=== PATIENT | female | born 2000 | race Caucasian/White ===

== ENCOUNTER 2020-04-24 08:41 | Outpatient (REF) | payer MEDICAID, SELFPAY ==
--- NOTE | 2020-04-24 08:45 | CT_ITS ---
EXAMINATION: CT HEAD WITHOUT CONTRAST CLINICAL INFORMATION: Migraine COMPARISON: None TECHNIQUE: Contiguous axial imaging was performed from the skull base to vertex without intravenous administration of contrast. This CT examination was performed using dose optimization techniques as appropriate, variously including the following: *Automated exposure control *Adjustment of mA and/or kV according to patient size (this includes techniques or standardized protocols for targeted exams where dose is matched to indication/reason for exam; i.e. extremities or head) *Use of iterative reconstruction technique DLP: 662 mGy-cm FINDINGS: There is no evidence of acute intracranial hemorrhage or territorial infarction. No abnormal mass effect or midline shift is seen. Padilla to white matter differentiation is well preserved. No extra-axial fluid collections are identified. The ventricles are normal in size. There is no abnormal attenuation within the brain parenchyma. The osseous structures and soft tissues are normal. The mastoid air cells and visualized portions of the paranasal sinuses are well aerated. CT/CT head/brain wo con IMPRESSION: No acute intracranial process seen.
== END 2020-04-24 08:42 | disposition home or self-care (01) ==
LOC: HO.CT 08:41
PROVIDERS: PCP Internal Medicine; Visit Provider Internal Medicine
DX: G43.009 Migraine without aura, not intractable, without status migrainosus (principal); R41.3 Other amnesia
CPT/HCPCS: 70450

== ENCOUNTER 2020-06-03 14:16 | Outpatient (REF) | payer MEDICAID, SELFPAY | END 2020-06-03 14:17 | disposition home or self-care (01) | LOC: HO.LAB 14:16 | PROVIDERS: Visit Provider Internal Medicine | DX: Z20.828 Contact with and (suspected) exposure to other viral communicable diseases (principal) | CPT/HCPCS: C9803; U0003 ==

== ENCOUNTER 2020-06-13 06:55 | Outpatient (REF) | payer MEDICAID, SELFPAY | END 2020-06-13 06:56 | disposition home or self-care (01) | LOC: HO.LAB 06:55 | PROVIDERS: PCP Internal Medicine; Visit Provider Internal Medicine | DX: Z20.828 Contact with and (suspected) exposure to other viral communicable diseases (principal) | CPT/HCPCS: C9803; U0003 ==

== ENCOUNTER 2020-06-28 07:08 | Outpatient (REF) | payer MEDICAID, SELFPAY | END 2020-06-28 07:09 | disposition home or self-care (01) | LOC: HO.LAB 07:08 | PROVIDERS: Visit Provider Internal Medicine | DX: Z20.822 Contact with and (suspected) exposure to COVID-19 (principal) | CPT/HCPCS: 36415; C9803; U0003 ==

== ENCOUNTER 2021-04-04 23:04 | Emergency (ER) | payer MEDICAID, SELFPAY ==
[2021-04-05 00:04] VITALS: BP 103/60; BP 112/68; PULSE 80; PULSE 92; RESP 16; TEMP 36.5; O2SAT 98; O2SAT 99; BMI 20.2
--- NOTE | 2021-04-05 00:49 | PC.NURSE ---
PT GIVEN ICE WATER AND CRACKERS, ABLE TO TOLERATE W/O NAUSEA OR VOMITING.
== END 2021-04-05 01:16 | disposition left against medical advice (07) ==
PROVIDERS: Emergency Provider Emergency Medicine
DX: F41.1 Generalized anxiety disorder (principal); R11.0 Nausea
CPT/HCPCS: 99282

== ENCOUNTER 2022-10-28 07:34 | Outpatient (REF) | payer MEDICAID, SELFPAY ==
[2022-10-28 08:51] LABS: D Dimer High Sensitivity 583 NG/ML
== END 2022-10-28 07:35 | disposition home or self-care (01) ==
LOC: HO.LAB 07:34
PROVIDERS: PCP Internal Medicine; Visit Provider Emergency Medicine
DX: R07.9 Chest pain, unspecified (principal)
CPT/HCPCS: 36415; 85379

== ENCOUNTER 2022-10-28 10:17 | Emergency (ER) | payer MEDICAID, SELFPAY ==
--- NOTE | ~2022-10-28 | CT_ITS ---
EXAMINATION: CT ANGIOGRAM OF THE CHEST WITH AND WITHOUT CONTRAST (CT PULMONARY ANGIOGRAM FOR PE) CLINICAL INFORMATION: Reason for Exam right chest pain, elevated DDIMER COMPARISON: None available. TECHNIQUE: Prior to contrast administration, noncontrast localization images were obtained. Subsequently, multidetector volumetric imaging was performed from the thoracic inlet to below the diaphragms following the administration of 80 mL Omnipaque 350 intravenous contrast. No contrast reaction reported Sagittal, coronal, and MIP oblique sagittal reformatted images were obtained on the CT workstation, uploaded to PACS, and reviewed. This CT examination was performed using dose optimization techniques as appropriate, variously including the following: *Automated exposure control *Adjustment of mA and/or kV according to patient size (this includes techniques or standardized protocols for targeted exams where dose is matched to indication/reason for exam; i.e. extremities or head) *Use of iterative reconstruction technique Total exam dose-length product 147 mGy-cm FINDINGS: QUALITY OF STUDY/CONTRAST BOLUS: Satisfactory. PULMONARY ARTERIES: No pulmonary emboli. THORACIC AORTA: No aneurysm. LUNG: No focal consolidation, nodules or masses. PLEURA: No pleural effusion or pneumothorax. MEDIASTINUM: Normal heart size. No pericardial effusion. No hilar or mediastinal lymphadenopathy. No evidence of septal bowing or right heart strain. CORONARY ARTERY CALCIFICATION: None visualized on this study. CHEST WALL/AXILLA: No axillary or internal mammary lymphadenopathy. OSSEOUS STRUCTURES: No acute or suspicious osseous abnormality. UPPER ABDOMEN: Visualized liver, spleen, pancreas and bilateral kidneys unremarkable. No reflux of contrast into the hepatic veins to suggest elevated right heart pressures. CT/CT angio chest PE protocol IMPRESSION: 1. No evidence of PE. 2. No evidence of aortic dissection or aneurysm. 3. The lungs are clear. VTE: negative. .
[2022-10-28 11:13] VITALS: BP 107/71; PULSE 77; RESP 18; TEMP 36.8; O2SAT 100; BMI 22.8
--- NOTE | 2022-10-28 11:15 | ED_ITS ---
HPI - Recheck/Abnormal Lab/Rx General Chief Complaint: Recheck/Abnormal Lab/Rx Stated Complaint: Elevated D Dimer Time Seen by Provider: 10/28/22 13:37 Source: patient Mode of arrival: ambulatory Limitations: no limitations History of Present Illness HPI narrative: 22 yo otherwise healthy female presents to the ER for evaluation of an elevated DDIMER done on outpatient labs this morning. She reports for the last 4 days she has had pleuritic type right sided rib and chest pain. She denies SOB or chest pain at rest. No coughing or URI symptoms. She denies any long trips, leg swelling or personal or family history of DVT/PE. She is not on OCP. She states the pain is only when she takes a deep breath. She is very active and works out multiple times per week. MD complaint: abnormal lab Initial visit (ago): hour(s) Returns today for: called because of abnormal lab/test Description of abnormal result: ddimer 500 Symptoms since prior visit: no new symptoms Associated symptoms: chest pain Related Data Allergies Allergy/AdvReac Type Severity Reaction Status Date / Time sulfamethoxazole Allergy Unknown RASH Unverified 03/07/20 17:12 [From BACTRIM] trimethoprim [From BACTRIM] Allergy Unknown RASH Unverified 03/07/20 17:12 Review of Systems Review of Systems: Yes all other systems are reviewed and are negative [facility] Past Medical History Medical History (Updated 10/28/22 @ 15:55 by MARKO Weathers) No known health problems Social History Social History Advance Directives: No Advance Directives Information Provided: No Physical Exam Vital Signs: Vital Signs: Last Vital Signs Temp 98.2 F 10/28/22 11:13 Pulse 77 10/28/22 11:13 Resp 18 10/28/22 11:13 BP 107/71 10/28/22 11:13 Pulse Ox 100 10/28/22 11:13 O2 Del Method Room Air 10/28/22 11:13 BMI result Body Mass Index 22.8 Appearance: Alert. Oriented X3. No acute distress. Head: normocephalic, atraumatic. Eyes: Pupils equal, round and reactive to light. ENT: Pharynx normal. No tonsillar swelling or exudate. Neck: Normal inspection. Neck supple. CVS: Normal heart rate and rhythm. Pulses normal. Respiratory: No respiratory distress. Breath sounds normal. Nontender chest wall Abdomen: Soft and nontender. +BS x4 Skin: Skin warm and dry. Normal skin color. Normal skin turgor. No rashes. Extremities: No lower extremity edema. No joint swelling. Neuro/psych: Oriented X 3. No motor deficit. No sensory deficit. CN II-XII intact. Normal speech and cognition. Medications Administered Discontinued Medications Generic Name Dose Route Start Last Admin Trade Name Freq PRN Reason Stop Dose Admin Iohexol 100 ml 10/28/22 13:42 10/28/22 13:46 Iohexol 350 Mg/Ml 100 Ml Infus..Btl IV 10/28/22 13:43 65 ml ONCE ONE Administration Medical Decision Making Medical Decision Making [facility] Narrative: 22 yo female presents to the ER for evaluation of 4 days of right sided rib pain w/ deep breaths. outpatient ddimer 583. no PE risk factors. no tachycardia or hypoxia. no leg swelling. CTA done and negative pain most likely muscular pain stable for d/c with nsaid and outpatient follow up Differential Diagnosis Differential Diagnoses: The differential diagnosis associated with the presentation includes PE, ACS unlikely costochronditis, pleurisy, PNA, broken rib, shingles, pulled muscle Lab Data [facility] Lab Attestation statement: I reviewed the patient's lab results. 10/28/22 11:52 10/28/22 11:52 Labs: Lab Results 10/28/22 10/28/22 Range/Units 11:52 11:52 WBC 9.5 (4.8-10.8) X10*3/uL RBC 4.41 (4.20-5.50) X10*6/uL Hgb 12.7 (12.0-16.0) g/dl Hct 38.7 (37.0-47.0) % MCV 87.8 (80.0-98.0) fL MCH 28.8 (27.0-33.0) pg MCHC 32.8 (31.0-35.0) g/dl RDW 13.1 (11.0-16.0) % Plt Count 297 (160-400) X10*3/uL MPV 9.0 L (9.4-12.3) fL Immature Gran % (Auto) 0.2 (0.0-0.4) % Neut % (Auto) 77.5 H (45-73) % Lymph % (Auto) 17.7 L (20-40) % [place] % (Auto) 3.9 (2-11) % Eos % (Auto) 0.4 (0-4) % Baso % (Auto) 0.3 (0-2) % Lymph # (Auto) 1.7 (1.2-4.9) X10*3/uL [place] # (Auto) 0.4 (0.1-1.2) X10*3/uL Eos # (Auto) 0.0 (0.0-0.4) X10*3/uL Baso # (Auto) 0.0 (0.0-0.2) X10*3/uL Abs Immat Gran (auto) 0.02 (0.00-0.03) X10*3/uL Absolute Neuts (auto) 7.3 (2.0-8.3) x10*3/uL Absolute Nucleated RBC 0.000 (0.0-0.012) X10*3/uL Nucleated RBC % (auto) 0.0 (0.0-0.2) /100WBC Sodium 140 (135-145) mmol/L Potassium 4.3 (3.3-5.1) mmol/L Chloride 106 (96-108) mmol/L Carbon Dioxide 28 (22-29) mmol/L Anion Gap 10 L (12-20) BUN 14 (9-16) mg/dL Creatinine 0.77 (0.5-1.4) mg/dL Estim Creat Clear Calc 82.3 Estimated GFR > 60 Random Glucose 80 (60-115) mg/dL Calcium 9.6 (8.4-10.2) mg/dL Magnesium 2.0 (1.6-2.6) mg/dL Total Bilirubin 0.3 (0.0-1.0) mg/dL Direct Bilirubin 0.1 (0.0-0.5) mg/dL AST 20 (5-31) U/L ALT 11 (0-31) U/L Alkaline Phosphatase 96 (39-117) U/L Total Protein 7.4 (6.5-8.0) g/dL Albumin 4.3 (3.5-5.0) g/dL Independent Interpretation I performed an independent interpretation of an: CT Scan Interpretation: clear lungs, no PE seen, agree w/ radiology read Radiology Impression Discussion of test interpretation with radiology: I have reviewed the radiologist's reading. Radiologist Impression: CT/CT angio chest PE protocol IMPRESSION: 1.? No evidence of PE. 2.? No evidence of aortic dissection or aneurysm. 3.? The lungs are clear. External Record Review External record reviewed: Outpatient record, Prior outpatient labs and Prior outpatient radiology Tests considered The following testing was considered but not selected: EKG Prescription Management I considered prescription management with: Pain Medication Critical Care Time Critical Care Time Critical Care Time: No Discharge Plan Discharge Clinical Impression: Chest pain, pleuritic Patient Disposition: Home, Self-Care Instructions: Costochondritis (ED) Additional Instructions: Your lab workup and CT scan today were normal. Your pain is most likely muscular pain Take the prescribed anti-inflammatory medication as prescribed If you develop new or worsening symptoms call 911 or come back to the ER for further evaluation. Referrals: Rosalind Mitchell MD [Primary Care Provider] - Stand Alone Forms: Work/School Release Interventions: ED Discharge Assessment Last Done: 10/28/22 16:15 Discharge Date/Time: 10/28/22 16:15
[2022-10-28 11:55] LABS: MANUAL DIFF FLAG NO
[2022-10-28 12:02] LABS: Basophils Percent Auto 0.3 % (0-2); Eosinophils Percent Auto 0.4 % (0-4); Hematocrit 38.7 % (37.0-47.0); Hemoglobin 12.7 g/dl (12.0-16.0); Imm Gran Abs Auto 0.02 X10*3/uL (0.00-0.03); Imm Gran Pct Auto 0.2 % (0.0-0.4); Lymphocytes Absolute Auto 1.7 X10*3/uL (1.2-4.9); Lymphocytes Percent Auto 17.7 % (20-40); Mean Corpuscular HGB Conc 32.8 g/dl (31.0-35.0); Mean Corpuscular Hemoglobin 28.8 pg (27.0-33.0); Mean Corpuscular Volume 87.8 fL (80.0-98.0); Monocytes Absolute Auto 0.4 X10*3/uL (0.1-1.2); Monocytes Percent Auto 3.9 % (2-11); Neutrophils Absolute Auto 7.3 x10*3/uL (2.0-8.3); Neutrophils Percent Auto 77.5 % (45-73); Platelet Count 297 X10*3/uL (160-400); Red Blood Count 4.41 X10*6/uL (4.20-5.50); Red Cell Distribution Width 13.1 % (11.0-16.0); White Blood Count 9.5 X10*3/uL (4.8-10.8)
[2022-10-28 12:22] LABS: Alanine Aminotransferase 11 U/L (0-31); Albumin Level 4.3 g/dL (3.5-5.0); Alkaline Phosphatase 96 U/L (39-117); Anion Gap 10 (12-20); Aspartate Amino Transferase 20 U/L (5-31); Bilirubin Direct 0.1 mg/dL (0.0-0.5); Bilirubin Total 0.3 mg/dL (0.0-1.0); Blood Urea Nitrogen 14 mg/dL (9-16); Calcium 9.6 mg/dL (8.4-10.2); Carbon Dioxide 28 mmol/L (22-29); Chloride 106 mmol/L (96-108); Creatinine Clr Calc Pharmacy 82.3; Estimated Glomerular Filt Rate > 60; Glucose Random 80 mg/dL (60-115); Potassium 4.3 mmol/L (3.3-5.1); Sodium 140 mmol/L (135-145); Total Protein 7.4 g/dL (6.5-8.0)
[2022-10-28] MEDS: iohexoL 350 MG/ML 100 ML INFUS..BTL IV (13:46)
== END 2022-10-28 16:15 | disposition home or self-care (01) ==
PROVIDERS: Physician Assistant; Emergency Provider Emergency Medicine Emergency Medical Services; PCP Internal Medicine
DX: R07.89 Other chest pain (principal)
CPT/HCPCS: 36415; 71275; 80048; 80076; 83735; 85025; 99282; 99284; Q9967

== ENCOUNTER 2022-12-14 14:18 | Outpatient (REF) | payer MEDICAID, SELFPAY | END 2022-12-14 14:19 | disposition home or self-care (01) | LOC: HO.XRAY 14:18 | PROVIDERS: Visit Provider Internal Medicine | DX: S63.657A Sprain of metacarpophalangeal joint of left little finger, initial encounter (principal); X58.XXXA Exposure to other specified factors, initial encounter; Y93.9 Activity, unspecified; Y92.9 Unspecified place or not applicable; Y99.9 Unspecified external cause status | CPT/HCPCS: 73110; 73130 ==

== ENCOUNTER 2023-01-02 09:43 | Emergency (ER) | payer MEDICAID, SELFPAY ==
--- NOTE | ~2023-01-02 | XR_ITS ---
EXAMINATION: XR HAND, LEFT CLINICAL INFORMATION: Left pinky pain status post injury. COMPARISON: Left hand radiographs dated 12/14/2022. TECHNIQUE: PA, lateral, and oblique views of the left hand. FINDINGS: Mild soft tissue swelling is seen in the fifth digit. A tiny density is seen along the distal/radial margin of the proximal phalanx of the fifth digit. The joint spaces are unremarkable. There is no radiopaque foreign body. The remainder the digits are intact. The carpal bones are normally aligned. The distal radius and ulna are intact. XR/XR hand LT min 3V IMPRESSION: Mild soft tissue swelling in the fifth digit with possible tiny avulsion type injury in the distal aspect of the proximal phalanx as detailed above.
[2023-01-02 09:51] VITALS: BP 113/64; PULSE 93; RESP 18; TEMP 36.1; O2SAT 97; BMI 22.9
--- NOTE | 2023-01-02 10:53 | ED.EXTPRO ---
HPI - Extremity Problem General Chief complaint: Extremity Injury, Upper Stated complaint: L hand fracture ? Time Seen by Provider: 01/02/23 10:52 Source: patient Mode of arrival: ambulatory History of Present Illness HPI Narrative: 22-year-old female who arrives here with pains left pinky finger that started approximately 2 weeks ago when she was zip lining. Related Data Allergies Allergy/AdvReac Type Severity Reaction Status Date / Time sulfamethoxazole Allergy Intermediate RASH Verified 01/02/23 09:51 [From BACTRIM] trimethoprim [From BACTRIM] Allergy Intermediate RASH Verified 01/02/23 09:51 Review of Systems Review of Systems: Pertinent positives and negatives as stated in HPI PMFSH Past Medical History Source: nursing notes reviewed Medical History No known health problems Social History Social History Advance Directives: No Physical Exam Vital Signs: Vital Signs: Last Vital Signs Temp 97.0 F 01/02/23 09:51 Pulse 93 01/02/23 09:51 Resp 18 01/02/23 09:51 BP 113/64 01/02/23 09:51 Pulse Ox 97 01/02/23 09:51 O2 Del Method Room Air 01/02/23 09:51 BMI result Body Mass Index 22.9 VITAL SIGNS: Reviewed. GENERAL: Well developed, well nourished, in no acute distress. HEAD: Normocephalic/atraumatic EYES: PERRLA, EOMI LUNGS: Normal breath sounds. No adventitious sounds or accessory muscle use. SpO2<97> CARDIOVASCULAR: Regular rate and rhythm without noted murmurs ABDOMEN: Soft, non-tender, non-distended with bowel sounds. MUSCULOSKELETAL: No tenderness, deformities, or effusions noted on gross inspection. EXTREMITIES: No cyanosis, clubbing or edema; LEFT HAND: Mild swelling and ecchymosis at the distal aspect of the proximal phalanx SKIN: Inspection of the skin reveals no rashes NEUROLOGIC: Alert and oriented x 4. Strength and sensation to light touch were grossly intact x 4. Medical Decision Making Medical Decision Making [facility] Narrative: This is a 22-year-old female with history and clinical presentation consistent with suspected sprain versus fracture. I reviewed x-ray which appears to be somewhat suspicious for fracture, patient is right-hand dominant, splint placed on left hand and instructed to follow-up with primary care doctor in continue to use ice and [id number]-[id number] analgesics. Patient received combination analgesics here in the emergency room and she is otherwise discharged home in stable condition. All results were discussed with her at bedside. Radiology Impression Radiologist Impression: Fracture, otherwise my interpretation is in agreement with radiology's impression. Discharge Plan Discharge Clinical Impression: Avulsion fracture Patient Disposition: Home, Self-Care Instructions: Splint Care (ED), Avulsion Fracture (ED) Additional Instructions: Follow-up with your primary care provider Recommend [id number] Tylenol/ibuprofen as needed for pain control. Return to the ER for any worsening symptoms. Referrals: Rosalind Mitchell MD [Primary Care Provider] -
[2023-01-02 11:14] VITALS: BP 102/58; PULSE 78; RESP 18; TEMP 36.4; O2SAT 98
--- NOTE | 2023-01-02 11:19 | PC.NURSE ---
pt a&ox3, respirations even and unlabored. skin appropriate for ethnicity. pt reports pain 8/10 on the left pinky. pt hurt pinky zip lining 2 weeks ago. vss.
[2023-01-02] MEDS: Acetaminophen 325 MG TABLET 975 MG PO (11:24)
[2023-01-02] MEDS: Ibuprofen 400 MG TABLET PO (11:24)
== END 2023-01-02 11:47 | disposition home or self-care (01) ==
PROVIDERS: Emergency Provider Student in an Organized Health Care Education/Training Program; PCP Internal Medicine
DX: S62.637A Displaced fracture of distal phalanx of left little finger, initial encounter for closed fracture (principal); X58.XXXA Exposure to other specified factors, initial encounter; Y93.89 Activity, other specified; Y92.828 Other wilderness area as the place of occurrence of the external cause; Y99.9 Unspecified external cause status
CPT/HCPCS: 73130; 99283; 99284

== ENCOUNTER 2023-01-19 08:58 | Outpatient (REF) | payer MEDICAID, SELFPAY ==
--- NOTE | ~2023-01-19 | XR_ITS ---
EXAMINATION: XR HAND, LEFT CLINICAL INFORMATION: Pain in left hand COMPARISON: Left hand radiographs 01/02/2023 TECHNIQUE: PA, lateral, and oblique views of the left hand. FINDINGS: Mild soft tissue swelling fifth PIP joint. A nondisplaced fracture is suspected through the head of the fifth proximal phalanx distally with a tiny fracture fragment. Suspect early signs of healing at the fracture margin. XR/XR hand LT min 3V IMPRESSION: Probable healing fracture involving the head of the fifth proximal phalanx in anatomic alignment.
== END 2023-01-19 08:59 | disposition home or self-care (01) ==
LOC: HO.HOSX 08:58
PROVIDERS: Visit Provider Orthopaedic Surgery
DX: M25.642 Stiffness of left hand, not elsewhere classified (principal); S63.617A Unspecified sprain of left little finger, initial encounter
CPT/HCPCS: 73130; 99202

== ENCOUNTER 2023-01-19 10:13 | Outpatient (AMB) | payer MEDICAID, SELFPAY ==
[2023-01-19 10:23] VITALS: BMI 22.8
--- NOTE | 2023-01-19 10:23 | A.OFFVIS_ITS ---
Intake Vital Signs 01/19/23 10:23 Height 5 ft Weight 117 lb BMI 22.8 Intake Visit Reasons: FC-fx of 5th digit of the left hand Intake Note: Leonie 22 yr old right had dominant female presents today for her ED follow up for her fx of 5th digit of the left hand. States on November she went zip lining and injured her pinky. Seen in ED where xrays were taken and finger was splinted. Currently states she wear her splint for about 2 weeks with improvement. States she is having stiffness in her pinky and is unable to bend it. Denies numbness or tingling. Allergies sulfamethoxazole [From BACTRIM] Allergy (Intermediate, Verified 01/19/23 10:24) RASH trimethoprim [From BACTRIM] Allergy (Intermediate, Verified 01/19/23 10:24) RASH HPI FC-fx of 5th digit of the left hand HPI Details Leonie is a 22 year old right hand dominant woman who presents with complaints of left small finger stiffness, with suspected avulsion fracture. She was ziplining in [facility] on 12/04/22 and injure her left hand, feeling pain in her small finger. She was seen at a walk-in clinic and purchased an OTC finger splint to wear. She was seen in the ED on 01/02/23, placed in a new finger splint for suspected avulsion fracture, and referred here. Today she says her pain is improved but her finger is very stiff after wearing her splint. She denies any numbness or tingling. 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 Review of Systems Const All systems reviewed & are unremarkable except as noted in HPI and below Physical Exam Vital Signs: BMI result Body Mass Index 22.8 Const General: cooperative, healthy appearing and no acute distress Orientation/consciousness: patient oriented x3 HEENT Head: Yes normocephalic and Yes atraumatic Eyes EOM: EOMs intact bilaterally Resp Effort & Inspection: normal respiratory effort and able to speak in complete sentences Cardio Jugular venous distension: no JVD Skin General skin exam: turgor normal Rashes: no rashes Neuro General: patient oriented x3 Extrem Other: Evaluation of Left Upper Extremity: The patient is alert, oriented, and in no acute distress Neuro: Median, Ulnar, Radial nerves motor and sensory intact and sensation is normal to the tips of all digits Vascular: Cap refill brisk ROM: She can bring her thumb, index, middle, and ring fingers closed to a fist and extend all her digits Initially she couldn't/wouldn't flex her small finger PIP joint After working on ROM exercises in clinic, she could bring her finger almost 2 her palm before leaving clinic. Skin: No lacerations or abrasions. General: No Ecchymosis. No Erythema or evidence of infection. The PIP joint was only minimally tender to palpation. It was stable on exam. Radiographs: 3 views of the left hand, with attention to the small finger, were taken and viewed by me today in clinic, and compared to prior X-rays taken on 12/14/22 & 01/02/23. There is evidence of a small avulsion fracture off the origin of the RCL of the proximal radial side of the PIP joint. Psych Appearance: grossly normal Affect: normal affect Attitude: cooperative Office Procedures Fracture Care Details: No fracture, 15 minutes of manual therapy [id number] Fracture Billing Code: Fracture Billing Code Assessment & Plan Assessment & Plan (1) Stiffness of finger joint of left hand: Code(s): M25.642 - Stiffness of left hand, not elsewhere classified (2) Sprain of left little finger: Code(s): S63.617A - Unspecified sprain of left little finger, initial encounter Plan Assessment & Plan: 1. Left small finger PIP stiffness 2. Left small finger PIP joint sprain, small avulsion fracture from the radial collateral ligament origin DOI: 12/04/22 Seen in ED on 01/02/23 and placed in a splint Joint stable on exam I educated her about this condition We worked on ROM exercises for more than 15 minutes in clinic with significant improvement in her passive and active range of motion. She felt somewhat nauseous after working on these exercises, but recovered without incident She will work on ROM exercises at home, 20x daily I ordered OT hand therapy to work on finger ROM and normalizing hand function She can follow up prn Scribed for Amrita Bliss MD by Abdiel Treadwell, medical records specialist, on 01/19/23 at 11:10 AM, EST. Orders: Orders XR hand LT min 3V Today M79.642 - Pain in left hand OT Evaluation and Treatment Today M25.642 - Stiffness of left hand, not elsewhere classified, S63.617A - Unspecified sprain of left little finger, initial encounter Coding Level of Care Code New Pt Level 3 (36691) Diagnoses Stiffness of finger joint of left hand M25.642 Sprain of left little finger S63.617A CPT Codes Fracture Care - Fracture Billing Code: Fracture Billing Code ([id number])
== END 2023-01-19 11:18 | disposition home or self-care (01) ==
PROVIDERS: PCP Internal Medicine; Visit Provider Orthopaedic Surgery
DX: S63.617A Unspecified sprain of left little finger, initial encounter (principal); M25.642 Stiffness of left hand, not elsewhere classified
CPT/HCPCS: 99203

== ENCOUNTER 2023-02-24 07:00 | Outpatient (RCR) | payer MEDICAID, SELFPAY ==
--- NOTE | 2023-02-02 09:58 | MHC.OT.EP ---
[address] [phone] Occupational Therapy Plan of Care Patient Name: Leonie Servin Date of Evaluation: 02/02/23 Diagnosis: Sprain left small finger PIP joint Pain Location: 3 Left SF ache Pain Score: 3 Pain Scale Used: Numeric (0 - 10) Aggravating Factors: Gripping and hand exercise to bend and straighten finger Alleviating Factors: Assessment: Pt is a 22 yo with a left non dominant hand small finger PIP joint contracture due to injury zip lining two months ago. She was splinted in extension for several weeks and was able to gain good improvement in PIP joint flexion with Dr Bliss. Today pt presents with a PIP joint flexion and extension contracture and pain primarily with exercise and heavy use. Pt will benefit from OT to regain her small finger ROM for improved left hand function Frequency and Duration: The patient will be seen 1 x wk x 4 wks Short Term Goals: Demonstrate independence with HEP for small finger ROM Tolerate night PIP joint extension orthosis PIP joint flexion to > 75 deg PIP joint extension to < 20 deg. Senior Care Goals: Small finger AROM to DPC PIP joint to neutral Raw Hide Trimmer strength to 40 lb Improved ease with typing Treatment Plan: Therapeutic Exercise Therapeutic Activity Home Exercise Program Splinting Patient Education Paraffin Fluidotherapy MHP Joint Mobilization Pt with limited availability .. 7 am only . Prefers 1x wk Electronically Signed By: Patricia Villa OT CHT CLT Please Sign and return to therapist. Thank you once again for your referral.
--- NOTE | 2023-02-02 12:42 | MHC.OT.EP ---
[address] [phone] Occupational Therapy Plan of Care Patient Name: Leonie Servin Date of Evaluation: 02/02/23 Diagnosis: Sprain left small finger PIP joint Pain Location: 3 Left SF ache Pain Score: 3 Pain Scale Used: Numeric (0 - 10) Aggravating Factors: Gripping and hand exercise to bend and straighten finger Alleviating Factors: Assessment: Pt is a 22 yo with a left non dominant hand small finger PIP joint contracture due to injury zip lining two months ago. She was splinted in extension for several weeks and was able to gain good improvement in PIP joint flexion with Dr Bliss. Today pt presents with a PIP joint flexion and extension contracture and pain primarily with exercise and heavy use. Pt will benefit from OT to regain her small finger ROM for improved left hand function Frequency and Duration: The patient will be seen 1 x wk x 4 wks Short Term Goals: Demonstrate independence with HEP for small finger ROM Tolerate night PIP joint extension orthosis PIP joint flexion to > 75 deg PIP joint extension to < 20 deg. 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 7 am only . Prefers 1x wk Electronically Signed By: Patricia Villa OT CHT CLT Please Sign and return to therapist. Thank you once again for your referral.
--- NOTE | 2023-02-24 07:49 | MHC.OT.DC ---
[address] [phone] F: [phone] Occupational Therapy Discharge Note Patient Name: Leonie Servin Provider: Dr Amrita Bliss Diagnosis: Sprain left small finger PIP joint Date of Evaluation: 02/02/23 Date of Discharge: 02/24/23 Treatments to Date: 4 Discharge Status: Achieved Goals Improved Function Independent with HEP Discharge Summary: Leonie is about three months s/p left small finger strain. She has done well w/ progression of range and strength and although continues to have slight PIP flexion contracture, she has continues to show weekly gains and has good follow through w/ HEP and self management techniques. She has no functional loss and I anticipate she will continue to progress through exercises and nighttime orthosis wear for optimal gains. Electronically Signed By: SAQIB Anderson/Pankaj PALOMINOT Reviewed/agree with student documentation: Therapist: Please Sign and return to therapist, thank you for your referral.
== END 2023-02-24 07:49 | disposition home or self-care (01) ==
LOC: HO.OT 07:00
PROVIDERS: PCP Internal Medicine; Visit Provider Orthopaedic Surgery
DX: S63.617D Unspecified sprain of left little finger, subsequent encounter (principal); M25.642 Stiffness of left hand, not elsewhere classified
CPT/HCPCS: 97110; 97140; 97165

== ENCOUNTER 2024-02-28 18:46 | Outpatient (REF) | payer OTHER, SELFPAY ==
[2024-03-03 15:13] LABS: Trichomonas (NAAT) NOT DETECTED
[2024-03-03 15:14] LABS: N. gonorrhoeae RNA TMA NOT DETECTED
== END 2024-02-28 18:47 | disposition home or self-care (01) ==
LOC: HO.HHCLNP 18:46
PROVIDERS: Visit Provider Advanced Practice Midwife
DX: Z12.4 Encounter for screening for malignant neoplasm of cervix (principal); Z11.3 Encounter for screening for infections with a predominantly sexual mode of transmission
CPT/HCPCS: 36415; 87491; 87591; 87661; 88175

== ENCOUNTER 2024-07-20 08:23 | Outpatient (AMB) | payer OTHER, SELFPAY ==
--- NOTE | 2024-07-20 08:24 | MHC.OFFVIS ---
Vital Signs 07/20/24 08:31 Height 5 ft Weight 135 lb BMI 26.4 BP 112/72 Intake Visit Reasons: New patient ASCUS Pneumatic Tester: Pneumatic Tester Present (Brenda) Accompanied by: Self / Same As Patient Allergies sulfamethoxazole [From BACTRIM] Allergy (Intermediate, Verified 07/20/24 08:30) RASH trimethoprim [From BACTRIM] Allergy (Intermediate, Verified 07/20/24 08:30) RASH HPI Comments Details: Presenting referred from [facility] for Pap smear done on 02/28/2024 showing ASCUS, no HPV done, chlamydia was positive. According to patient , she was not informed of the positive chlamydia nor was she treated or her partner . 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 Female Reproductive History Menstrual Age of Menarche: 13 Duration of menses: 3-5 days Date of last menstrual period: 06/25/24 control method: other (Paraguard) History of abnormal pap smear: Yes Review of Systems Const All systems reviewed & are unremarkable except as noted in HPI and below Physical Exam Vital Signs: Last Vital Signs BP 112/72 07/20/24 08:31 BMI result Body Mass Index 26.4 General: Yes no CVA tenderness External Female Exam: normal external appearance and normal appearance of the urethra Speculum Exam - Vagina: normal appearance of the vagina, normal palpation, no lesions and no masses Speculum Exam - Cervix: normal appearance of the cervix, normal palpation, no lesions, no masses and nontender Bimanual exam- vagina & uterus: normal bimanual exam, normal palpation, uterine size normal, normal palpation, uterine shape normal, No Cervical tenderness present and non-tender Bimanual Exam- Adnexa, other: normal adnexae Back/Spine/Pelvis Back: no CVA tenderness Assessment & Plan Assessment & Plan (1) Atypical squamous cells of undetermined significance (ASC-US) on cervical Pap smear: Code(s): R87.610 - Atypical squamous cells of undetermined significance on cytologic smear of cervix (ASC-US) Category: Medical Plan: Discussed with the patient the ASCCP guidelines regarding management of woman ages 21-24 was ascus with no HPV available, the recommendation is to repeat cytology in 12 months. If ascus is recurrent after 12 months next step is to proceed with colposcopy, since the patient had ASCUS in 2020 followed by negative Pap smear in , per ASCCP guidelines there is indication for colposcopy. Will treat chlamydia follow-up with BRAD in 2 weeks if negative will proceed with colposcopy. Instructions given the patient to schedule colposcopy within 3 weeks (2) Chlamydia: Code(s): A74.9 - Chlamydial infection, unspecified Category: Medical Plan: Chlamydia positive since 02/28/2024 , the patient has not been treated nor her partner. We will treat the patient with doxycycline 100 mg p.o. b.i.d. for 7 days. Instructions given the patient to inform her partner(s) to be treated by PCPor will rx with EPT. Instructions given to the patient not to have sexual intercourse till 1 week after both partners are treated. We will screen for other std's, including HIV, RPR, Hep b s Ag and hepatitis-C antibody. Instructions given to patient that the serologies need to be repeated in 6 months because of the possible false negative rate. Instructions given the patient to follow up for a test of cure in 2 weeks . Orders: Orders Hepatitis C Antibody Today Z20.2 - Contact with and (suspected) exposure to infections with a predominantly sexual mode of transmission Hepatitis B Surface Antigen Today Z20.2 - Contact with and (suspected) exposure to infections with a predominantly sexual mode of transmission Syphilis Screen Today Z20.2 - Contact with and (suspected) exposure to infections with a predominantly sexual mode of transmission HIV Ab/Ag Today Z20.2 - Contact with and (suspected) exposure to infections with a predominantly sexual mode of transmission Medications: New doxycycline hyclate 100 mg PO BID 7 days 14 caps 0RF Coding Level of Care Code New Pt Level 3 (33113) Diagnoses Atypical squamous cells of undetermined significance (ASC-US) on cervical Pap smear R87.610 Chlamydia A74.9
[2024-07-20 08:31] VITALS: BP 112/72; BMI 26.4
--- OUTSIDE RECORDS SUMMARY | 2024-07-20 11:14 | XMS_ITS | Clinical Summary ---
Author Organization [employer] Address [address] [facility] [address] [place] [address] Care Team Providers Care Supply Cataloguer Name Role Phone Rosalind Mitchell MD Primary Care Provider + Allergies Active Allergy Reactions Criticality Noted Date Comments Sulfa Antibiotics 11/13/2021 Sulfamethoxazole 09/03/2017 Trimethoprim 09/03/2017 Medications hydrOXYzine pamoate (Vistaril) 100 MG capsule TOME KAREN C PSULA TODOS LOS D AL ACOSTARSE 3 Active citalopram (CeleXA) 20 MG tablet TOME KAREN TABLETA TODOS LOS D 3 Active witch keven-glycerin (Tucks) pad Apply topically if needed for irritation. 60 each 2 4 Active ibuprofen (IBU) 800 MG tablet 1 tablet every 8 hours with food during menses, up to 7 days. 42 tablet 4 Active Active Problems Problem Noted Date Diagnosed Date Subjective visual disturbance of both eyes 02/06 Dental calculus 07/07/2023 Tinea corporis 12/17/2022 Assessment & Plan (12/17/2022 9:55 AM EDT): On upper back Rx lotrisone cream bid Re consult prn Encounter for preventive health examination 11/20 Assessment & Plan (02/07/2024 5:41 PM EDT): Discussed with patient re increase fresh fruit and vegetable intake. Counseled re moderate exercise as tolerated, up to 20min/d Patient feels safe at home. PAP smear: Overdue, will schedule one with me or tumbler machine operator helper. Mammogram: Not due yet. Due to Fam Hx, she will start screening at age 30 Eye exam: UTD, next one due on 08/2025 Lipids/FBS: Lipids over due, will order. Vaccinations: UTD. Dental visit: UTD, fu with our dental clinic this year. Assessment & Plan (12/17/2022 10:06 AM EDT): Discussed with patient re increase fresh fruit and vegetable intake. Counseled re moderate exercise as tolerated, up to 20min/d Patient feels safe at home. PAP smear: Up to date, next one done on 04/2023 due to ASCUS Mammogram: Due at age 35 due to mother with early breast Ca dx. Eye exam: Up to date, next one due on 06/2023 Lipids/FBS: Order lipid profile Vaccinations: Recommended bivalent covid vax, other IZs are uptodate, order Hep B titers. Dental visit: Up to date, next one due on 12/2022 she will make appt w her dentist Other sprain of left little finger, subsequent e ncounter 12/17/2022 Assessment & Plan (12/17/2022 10:02 AM EDT): Symptomatically improving with benjamin tapping. Continue benjamin tape x 3w at leas, we'll call With Xrays results. Poor short-term memory 12/15/2022 Pain in both lower legs 12/15/2022 Migraine without aura, not refractory 12/15/2022 Assessment & Plan (02/07/2024 5:38 PM EDT): Controlled Take Imitrex or Excedrin migraine prn Migraine with aura 12/15/2022 Low vision, both eyes 12/15/2022 Assessment & Plan (02/07/2024 5:39 PM EDT): Should be wearing prescription glasses, I told her to check with Eye clinic for her prescription and then fu with them if sxs continue Assessment & Plan (12/17/2022 10:40 AM EDT): Seen by ophthalmology, Rx glasses up to date Easy bruising 12/15/2022 Knee pain 12/15/2022 Dysmenorrhea 12/15/2022 Mild persistent asthma 05/03/2017 Anxiety 06/05/2013 Encounters Date Type Department Care Team Description 05/01/2024 Telephone [facility] [address] [place] [address] Kate Casarez CNM 04/24/2024 1:00 PM EST Office Visit [facility] [address] [place] [address] Kate Casarez CNM Atypical squamous cells of undetermined significance (ASCUS) on Papanicolaou smear of cervix (Primary Dx); Dysmenorrhea 04/24/2024 Travel from Last 3 Months Immunizations Name Administration Dates Next Due DTaP 03/09/2005, 1,2000,05/26 DTaP, 5 pertussis antigens 11/28/2001 HPV, Quadrivalent 12/28/2012,07/12/2012,05/20/20 12 Hep A, ped/adol, 2 dose 05/11/2016,07/05/2015 Hep B, Adolescent or Pediatric 2000,2000,2000 Hib (HbOC) 2000,2000,2000 Hib (PRP-T) 07/21/2001 IPV 03/09/2005, 1,2000,05/26 Influenza injectable quadriv alent IIV4 with preservative 04/10/2019 Influenza injectable quadriv alent preservative free 04/16/2021,03/31/2018,07/19/2017,05/11,07/05/2015,06/11/2014 Influenza, IIV3, injectable 04/20/2011, 9,03/26/2009 Influenza, Split (incl. mark fied surface antigen) 06/05/2013,05/20/2012 MMR 03/09/2005,03/31/2001 Meningococcal MCV4P ACYW-135 07/05/2015,03/20/20 11 Pneumococcal Conjugate PCV 13 07/21/2001, 001,2000 Pneumococcal Conjugate PCV 7 07/21/2001,12/31/19 01,2000 TD (adult), 2 Lf tetanus tox oid, preservative free, adsorbed 02/07/2021 Tdap 03/20/2011 Varicella 03/31/2011,03/31/2001 Family History Medical History Relation Name Comments Hypertension Father Breast cancer Mother Breast cancer Mother's Sister Asthma Sister Relation Name Status Comments Father Mother Mother's Sister Other Sister Social History Tobacco Use Types Packs/Day Years Used Date Smoking Tobacco: Never Passive Smoke Exposure: Never Smokeless Tobacco: Never Tobacco Cessation:Counseling Given: Not Answered Alcohol Use Standard Drinks/Week Comments Not Currently 0 (1 standard drink = 0.6 oz pur e alcohol) oca Housing Stability Answer Date Recorded What is your housing situation today? I have keshawn duong 04/19/[address] you li ve. Do you have problems with any of the following? None of the above 04/19/2023 Food Insecurity Answer Date Recorded Within the past 12 months, y ou worried that your food would run out before you got money to buy more: Never True 04/19/2023 Within the past 12 months,th e food you bought just didn't last and you didn't have enough money to get more: Never True Transportation Answer Date Recorded In the past 12 months, has l ack of transportation kept you from medical appts, meetings, work or from getting things needed for daily living? No 04/19/2023 Utilities Answer Date Recorded In the past 12 months, has t he electric, gas, oil or water company threatened to shut off services in your home? No 04/19/2023 Depression Answer Date Recorded Patient Health Questionnaire-2 Score 0 12/17/2022 Internet Access Answer Date Recorded Internet Access Q1 No 02/21/2024 Internet Access Q2 Not on file 02/21/2024 Comments No Sex and Gender Information Value Date Recorded Sex Assigned at Female 04/20/2022 10:17 AM EDT Legal Sex Female 10:17 AM EDT Gender Identity Female 04/20/2022 10:17 AM EDT Sexual Orientation Straight 04/20/2022 10 :17 AM EDT Last Filed Vital Signs Vital Sign Reading Time Taken Comments Blood Pressure 118/71 04/24/2024 1:06 PM EST Pulse 77 04/24/2024 1:06 PM EST Temperature 36.2 ??C (97.1 ??F) 04/24/2024 1:06 PM ES T Respiratory Rate 20 04/24/2024 1:06 PM EST Oxygen Saturation 99% 04/24/2024 1:06 PM EST Inhaled Oxygen Concentration - - Weight 61.9 kg (136 lb 6.4 oz) 04/24/2024 1:06 P M EST Height 152.4 cm (5') 04/24/2024 1:06 PM EST Body Mass Index 26.64 04/24/2024 1:06 PM EST Plan of Treatment Upcoming Encounters Date Type Department Care Team (Late st Contact Info) Description 07/20/2024 2:00 PM EST Office Visit [facility] [address] [place], [place] [phone] Kate Casarez, [facility] [address] [place], [place] [phone] Health Maintenance Due Date Last Done Comments Pneumococcal Vaccine: Pediatrics (0 to 5 Years) and At-Risk Patients (6 to 49) Years) (1 of 1 - PPSV23) 2006 07/21/2001, 07/21/2001, 2000, Additional history exists Alcohol/Substance Use Screening 2012 Hepatitis C Screening 2018 Depression Screening 12/18/2023 12/17/2022, 12/18/19 23 Dental Oral Exam 01/06/2024 07/07/2023 Dental Prophylaxis 01/06/2024 07/07/2023 COVID-19 Vaccine ( season) 2024 07/11/2021, 12/03/2020, 11/12/2020 Influenza Vaccine (#1) 2024 , 04/10/2019, 03/31/2018, Additional history exists Colposcopy 06/29/2024 Dental X-Ray: Bitewings 07/08/2024 07/07/2023 SDOH Screening 12/08/2024 12/09/2023 Pap Smear 02/27/2025 02/28/2024, 04/22, 04/16/2021 Family Planning (PISQ) 04/24/2025 04/24/2024 Tobacco Screening 04/24/2025 04/24/2024 Dental X-Ray: Full Mouth 07/08/2026 07/07/2023 DTaP/Tdap/Td Vaccines (8 - Td or Tdap) 02/07/2031 02/07/2021, 03/20/2011, 03/09/2005, Additional history exists Zoster Vaccines (1 of 2) 2050 RSV Patients and Patients Aged 60 years or older (1 - 1-dose 75+ series) 2075 Hepatitis B Vaccines Completed 2000, 2000, 2000 HIB Vaccines Completed 07/21/2001, 10/2000, 2000, Additional history exists IPV Vaccines Completed 03/09/2005, 10/2000, 2000, Additional history exists HPV Vaccines Completed 12/28/2012, 06/22, 05/20/2012 Meningococcal Vaccine Aged Out 07/05/2015, 011 No longer eligible based on patient's age to complete this topic Hepatitis A Vaccines Completed 05/11/2016, 07/05/19 16 HIV Screening Completed 05/29/2022, 04/21/2021 RSV under 20 months Aged Out No longe r eligible based on patient's age to complete this topic Rotavirus Vaccines Aged Out No longer eligible based on patient's age to complete this topic Procedures Procedure Name Priority Date/Time Associated Diagnosis Comments THINPREP IMAGING SYSTEM PAP Routine 02/28/2024 9:40 AM EDT Cervical cancer screening PROPHYLAXIS - ADULT Routine 07/07/2023 3 :00 PM EST DIAGNOSTIC - DIAGNOSTIC IMAGING - INTRAORAL - COMPREHENSIVE SERIES OF RADIOGRAPHIC IMAGES Routine 07/07/2023 3:00 PM EST PERIODIC ORAL EVALUATION - ESTABLISHED PATIENT Routine 07/07/2023 3:00 PM EST HIV 1/2 ANTIGEN/ANTIBODY, FOURTH GENERATION W/RFL Routine 05/29/2022 12:32 PM EST from Last 3 Months or Most Recently Relevant to Health Maintenance Results * (ABNORMAL) Pap Smear (02/28/2024 9:40 AM EDT) SOURCE: SEE NOTE [facility] Comment:Cervix Report Status: TNP [facility] Clinical Information: SEE NOTE [facility] Comment:None given LMP: SEE NOTE [facility] Comment:NONE GIVEN Prev. PAP: SEE NOTE [facility] Comment:NONE GIVEN Prev. BX: SEE NOTE [facility] Comment:NONE GIVEN Statement Of Adequacy: SEE NOTE [facility] Comment:Satisfactory for tammie luation.Endocervical/transformation zone componentpresent. General Categorization: SEE NOTE(A) [facility] Comment:Cytology Results: Ep ithelial Cell Abnormality Interpretation/Result: SEE NOTE(A) [facility] Comment:Atypical Squamous Ce lls of UndeterminedSignificance (ASC-US) Cytology Comment SEE NOTE [facility] Comment:This Pap test has be en evaluated with computerassisted technology. Editorial Assistant: SEE NOTE [facility] Comment:SL, CT(ASCP)CT scree deborah location: [place] [address] Review Editorial Assistant: SEE NOTE [facility] Comment:MSM, CT(ASCP)CT scre ening location: [place] [address] Pathologist SEE NOTE [facility] Comment:Maria Luisa Friend. ,Board Certified in Anatomic and ClinicalPathology, Cytopathology and Immunopathology(electronic signature) PAP Infection SEE NOTE [facility] Comment:Shift in vaginal li ra suggestive of bacterialvaginosis. See Note SEE NOTE [facility] Comment:EXPLANATORY NOTE:The Pap is a screening test for cervical cancer. It isnot a diagnostic test and is subject to false negativeand false positive results. It is most reliable when asatisfactory sample, regularly obtained, is submittedwith relevant clinical findings and history, and whenthe Pap result is evaluated along with historic andcurrent clinical information.THIS TEST WAS PERFORMED AT:[employer] [place] [id number] MARTINEZ MD Pap Vial Vaginal structure / Unknown 02/28/2024 9:40 AM EDT 02/28/2024 6:47 PM EDT Narrative [facility] - 03/03/2024 3:12 PM EDT SEE SCANNED RESULTS IN EMR Kate Casarez [facility] PATHOLOGY ORDERABLES Final Result [facility] [address] [place] [phone] * HIV-1/2 Antigen and Antibodies, Fourth Generation, with Reflexes (05/29/2022 12:32 PM EST) HIV Antigen/Antibody, 4th Generation NON-REAC TIVE NON-REAC TIVE [facility] [place] [facility] Comment: HIV-1 antigen and HIV-1/HIV-2 antibodies were not detected. There is no laboratory evidence of HIV infection. PLEASE NOTE: This information has been disclosed to you from records whose confidentiality may be protected by state law. ??If your state requires such protection, then the state law prohibits you from making any further disclosure of the information without the specific written consent of the person to whom it pertains, or as otherwise permitted by law. A general authorization for the release of medical or other information is NOT sufficient for this purpose. ?? For additional information please refer to http://education.[employer]/faq/EWT712 (This link is being provided for informational/ educational purposes only.) The performance of this assay has not been clinically validated in patients less than 2 years old. 05/29/2022 12:3 2 PM EST 05/29/2022 12:33 PM EST Kate Casarez [facility] BLOOD ORDERABLES Nuris l Result [facility] [address], [place] [address] [facility] [address], [place] [address] from Last 3 Months or Most Recently Relevant to Health Maintenance Insurance [facility] , [address] [place] [address] [facility] ADULT Care Teams Supply Cataloguer Relationship Specialty Start Date End Date Rosalind Mitchell MD [address] [place] [phone] PCP - General Family Medicine 12/07/18
== END 2024-07-20 11:25 | disposition home or self-care (01) ==
PROVIDERS: PCP Internal Medicine; Visit Provider Obstetrics & Gynecology
DX: R87.610 Atypical squamous cells of undetermined significance on cytologic smear of cervix (ASC-US) (principal); A74.9 Chlamydial infection, unspecified
CPT/HCPCS: 99203

== ENCOUNTER 2024-07-20 08:23 | Outpatient (REF) | payer OTHER, SELFPAY ==
--- OUTSIDE RECORDS SUMMARY | 2024-07-20 12:52 | XMS_ITS | Clinical Summary ---
Author Organization [employer] Address [address] [facility] [address] [place] [address] Care Team Providers Care Baker Chef Name Role Phone Rosalind Mitchell MD Primary [...] Overdue, will schedule one with me or furnace worker. Mammogram: Not due yet. Due to Fam [...] Type Department Care Team Description 05/01/2024 Telephone [facility] [address] [place] [address] Kate Casarez CNM 04/24/2024 1:00 PM EST Office Visit [facility] [address] [place] [address] Kate Casarez CNM Atypical squamous cells of [...] Description 07/20/2024 2:00 PM EST Office Visit [facility] [address] [place], [place] [phone] Kate Casarez, [facility] [address] [place], [place] [phone] Health Maintenance Due Date Last Done Comments [...] (02/28/2024 9:40 AM EDT) SOURCE: SEE NOTE [facility] Comment:Cervix Report Status: TNP [facility] Clinical Information: SEE NOTE [facility] Comment:None given LMP: SEE NOTE [facility] Comment:NONE GIVEN Prev. PAP: SEE NOTE [facility] Comment:NONE GIVEN Prev. BX: SEE NOTE [facility] Comment:NONE GIVEN Statement Of Adequacy: SEE NOTE [facility] Comment:Satisfactory for tammie luation.Endocervical/transformation zone componentpresent. General Categorization: SEE NOTE(A) [facility] Comment:Cytology Results: Ep ithelial Cell Abnormality Interpretation/Result: SEE NOTE(A) [facility] Comment:Atypical Squamous Ce lls of UndeterminedSignificance (ASC-US) Cytology Comment SEE NOTE [facility] Comment:This Pap test has be en evaluated with computerassisted technology. Residential Support Specialist: SEE NOTE [facility] Comment:SL, CT(ASCP)CT scree deborah location: [place] [address] Review Residential Support Specialist: SEE NOTE [facility] Comment:MSM, CT(ASCP)CT scre ening location: [place] [address] Pathologist SEE NOTE [facility] Comment:Maria Luisa Friend. ,Board Certified in Anatomic and ClinicalPathology, Cytopathology and Immunopathology(electronic signature) PAP Infection SEE NOTE [facility] Comment:Shift in vaginal li ra suggestive of bacterialvaginosis. See Note SEE NOTE [facility] Comment:EXPLANATORY NOTE:The Pap is a screening test for cervical cancer. It isnot a diagnostic test and is subject to false negativeand false positive results. It is most reliable when asatisfactory sample, regularly obtained, is submittedwith relevant clinical findings and history, and whenthe Pap result is evaluated along with historic andcurrent clinical information.THIS TEST WAS PERFORMED AT:[employer] [place] [phone] MARTINEZ MD Pap Vial Vaginal structure / Unknown 02/28/2024 9:40 AM EDT 02/28/2024 6:47 PM EDT Narrative [facility] - 03/03/2024 3:12 PM EDT SEE SCANNED RESULTS IN EMR Kate Casarez [facility] PATHOLOGY ORDERABLES Final Result [facility] [address] [place] [phone] * HIV-1/2 Antigen and Antibodies, Fourth Generation, with Reflexes (05/29/2022 12:32 PM EST) HIV Antigen/Antibody, 4th Generation NON-REAC TIVE NON-REAC TIVE [employer] [place] [employer] [facility] Comment: HIV-1 antigen and HIV-1/HIV-2 antibodies [...] ?? For additional information please refer to http://education.[facility]/faq/BWU580 (This link is being provided for informational/ educational purposes only.) The performance of this assay has not been clinically validated in patients less than 2 years old. 05/29/2022 12:3 2 PM EST 05/29/2022 12:33 PM EST Kate Casarez [facility] BLOOD ORDERABLES Unris [facility] Result [facility] [address], [place] [address] [employer] [facility] [address], [place] [address] from Last 3 Months or Most Recently Relevant to Health Maintenance Insurance [facility] , [address] [place] [address] [facility] ADULT Care Teams Baker Chef Relationship Specialty Start Date End Date Rosalind Mitchell MD [address] [place] [phone] PCP - General Family Medicine 12/07/18
== END 2024-07-20 08:24 | disposition home or self-care (01) ==
LOC: HO.LNP 08:23
PROVIDERS: PCP Internal Medicine; Visit Provider Obstetrics & Gynecology
DX: Z13.89 Encounter for screening for other disorder (principal)

== ENCOUNTER 2024-07-20 09:51 | Outpatient (REF) | payer OTHER, SELFPAY ==
[2024-07-21 10:42] LABS: Bacterial Vaginosis PCR POSITIVE (Negative); Candida Group PCR DETECTED (Not Detect); Candida glab krusei PCR NOT DETECTED (Not Detect); Trichomonas vaginalis PCR NOT DETECTED (Not Detect)
== END 2024-07-20 09:52 | disposition home or self-care (01) ==
LOC: HO.LAB 09:51
PROVIDERS: Visit Provider Obstetrics & Gynecology
DX: Z20.2 Contact with and (suspected) exposure to infections with a predominantly sexual mode of transmission (principal)
CPT/HCPCS: 81515

== ENCOUNTER 2024-08-02 09:24 | Outpatient (REF) | payer OTHER, SELFPAY ==
[2024-08-03 07:18] LABS: CT PCR NOT DETECTED (Not Detect.); NG PCR NOT DETECTED (Not Detect.)
== END 2024-08-02 09:25 | disposition home or self-care (01) ==
LOC: HO.LNP 09:24
PROVIDERS: PCP Internal Medicine; Visit Provider Obstetrics & Gynecology
DX: A74.9 Chlamydial infection, unspecified (principal)
CPT/HCPCS: 87491; 87591

== ENCOUNTER 2024-08-02 09:24 | Outpatient (AMB) | payer OTHER, SELFPAY ==
--- NOTE | 2024-08-02 09:31 | MHC.OFFVIS ---
Vital Signs 08/02/24 09:32 Height 5 ft Weight 135 lb BMI 26.4 Intake Visit Reasons: BRAD Touch Up Worker Required: No Information Interpreted: non-clinical & clinical Pulmonary Nurse Practitioner: Pulmonary Nurse Practitioner Present (Christal Ramírez SUZAN) Accompanied by: Self / Same As Patient Allergies sulfamethoxazole [From BACTRIM] Allergy (Intermediate, Verified 08/02/24 09:33) RASH trimethoprim [From BACTRIM] Allergy (Intermediate, Verified 08/02/24 09:33) RASH HPI Comments Details: The patient is presenting for a test of cure for positive chlamydia in 03/14. The patient took the antibiotics course; she informed her partner who was treated too. The patient reports no intercourse since then. 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 History Menstrual Age of Menarche: 13 Review of Systems Const All systems reviewed & are unremarkable except as noted in HPI and below Physical Exam Vital Signs: BMI result Body Mass Index 26.4 General: Yes no CVA tenderness External Female Exam: normal external appearance and normal appearance of the urethra Speculum Exam - Vagina: normal appearance of the vagina, normal palpation, no lesions and no masses Speculum Exam - Cervix: normal appearance of the cervix, normal palpation, no lesions, no masses and nontender Bimanual exam- vagina & uterus: normal bimanual exam, normal palpation, uterine size normal, normal palpation, uterine shape normal, No Cervical tenderness present and non-tender Bimanual Exam- Adnexa, other: normal adnexae Back/Spine/Pelvis Back: no CVA tenderness Assessment & Plan Assessment & Plan (1) Chlamydia: Code(s): A74.9 - Chlamydial infection, unspecified Category: Medical Plan: GC/CT done. STD screen previously ordered. Instructions given the patient to have blood test done (2) Atypical squamous cells of undetermined significance (ASC-US) on cervical Pap smear: Code(s): R87.610 - Atypical squamous cells of undetermined significance on cytologic smear of cervix (ASC-US) Category: Medical Plan: Pap smear scheduled in 03/15, instructions given the patient to follow-up then, the patient is aware. Orders: Orders CT NG by PCR Today A74.9 - Chlamydial infection, unspecified Coding Level of Care Code Est Pt Level 3 (84881) Diagnoses Chlamydia A74.9 Atypical squamous cells of undetermined significance (ASC-US) on cervical Pap smear R87.610
[2024-08-02 09:32] VITALS: BMI 26.4
--- OUTSIDE RECORDS SUMMARY | 2024-08-02 10:36 | XMS_ITS | Clinical Summary ---
Author Organization [employer] Address [address] [place] [address] 7 [place] [address] Care Team Providers Care Corporate Technical Recruiter Name Role Phone Rosalind Mitchell MD Primary [...] Overdue, will schedule one with me or education adviser. Mammogram: Not due yet. Due to Fam [...] Encounters Date Type Department Care Team Description 07/20/2024 2:00 PM EST Office Visit [facility] [address] [place] [phone] Kate Casarez CNM Chlamydia (Primary Dx) 07/20/2024 Travel from Last 3 Months Immunizations Name [...] your housing situation today? I have keshawn watters 04/19/[address] you li [...] Sign Reading Time Taken Comments Blood Pressure 116/74 07/20/2024 2:07 PM EST Pulse 103 07/20/2024 2:07 PM EST Temperature 36.2 ??C (97.2 ??F) 07/20/2024 2:07 PM ES T Respiratory Rate 20 07/20/2024 2:07 PM EST Oxygen Saturation 99% 07/20/2024 2:07 PM EST Inhaled Oxygen Concentration - - Weight 62.3 kg (137 lb 6.4 oz) 07/20/2024 2:07 P M EST Height 152.4 cm (5') 07/20/2024 2:07 PM EST Body Mass Index 26.83 07/20/2024 2:07 PM EST Plan of Treatment Health Maintenance Due Date Last Done Comments [...] Screening 12/08/2024 12/09/2023 Pap Smear 02/27/2025 02/28/2024, 11/02/2022, 04/16/2021 Family Planning (PISQ) 07/20/2025 07/20/2024 Tobacco Screening 07/20/2025 07/20/2024 Dental X-Ray: Full Mouth 07/08/2026 07/07/2023 DTaP/Tdap/Td [...] (02/28/2024 9:40 AM EDT) SOURCE: SEE NOTE [facility] Comment:Cervix Report Status: TNP [facility] Clinical Information: SEE NOTE [facility] Comment:None given LMP: SEE NOTE [facility] Comment:NONE GIVEN Prev. PAP: SEE NOTE [facility] Comment:NONE GIVEN Prev. BX: SEE NOTE [facility] Comment:NONE GIVEN Statement Of Adequacy: SEE NOTE [facility] Comment:Satisfactory for tammie luation.Endocervical/transformation zone componentpresent. General Categorization: SEE NOTE(A) [facility] Comment:Cytology Results: Ep ithelial Cell Abnormality Interpretation/Result: SEE NOTE(A) [facility] Comment:Atypical Squamous Ce lls of UndeterminedSignificance (ASC-US) Cytology Comment SEE NOTE [facility] Comment:This Pap test has be en evaluated with computerassisted technology. Boilermaker Fitter: SEE NOTE [facility] Comment:SL, CT(ASCP)CT scree deborah location: [address] [address] Review Boilermaker Fitter: SEE NOTE [facility] Comment:MSM, CT(ASCP)CT scre ening location: [place] [address] Pathologist SEE NOTE [facility] Comment:Maria Luisa Friend. ,Board Certified in Anatomic and ClinicalPathology, Cytopathology and Immunopathology(electronic signature) PAP Infection SEE NOTE [facility] Comment:Shift in vaginal li ra suggestive of bacterialvaginosis. See Note SEE NOTE [facility] Comment:EXPLANATORY NOTE:The Pap is a screening test for cervical cancer. It isnot a diagnostic test and is subject to false negativeand false positive results. It is most reliable when asatisfactory sample, regularly obtained, is submittedwith relevant clinical findings and history, and whenthe Pap result is evaluated along with historic andcurrent clinical information.THIS TEST WAS PERFORMED AT:[facility] [place] [id number] MARTINEZ MD Pap Vial Vaginal structure / Unknown 02/28/2024 9:40 AM EDT 02/28/2024 6:47 PM EDT Narrative [facility] - 03/03/2024 3:12 PM EDT SEE SCANNED RESULTS IN EMR us Kate Casarez CNM LAB PATHOLOGY ORDERABLES Final Result [facility] [address] [place] [address] [phone] * HIV-1/2 Antigen and Antibodies, Fourth Generation, with Reflexes (05/29/2022 12:32 PM EST) HIV Antigen/Antibody, 4th Generation NON-REAC TIVE NON-REAC TIVE [employer] [place] [facility] Comment: HIV-1 antigen and HIV-1/HIV-2 antibodies [...] ?? For additional information please refer to http://education.[employer]/faq/QYR952 (This link is being provided for informational/ educational purposes only.) The performance of this assay has not been clinically validated in patients less than 2 years old. 05/29/2022 12:3 2 PM EST 05/29/2022 12:33 PM EST Kate Casarez [facility] BLOOD ORDERABLES Nuris king Result [facility] [address], [place] [address] [employer] [place] [facility] [address], [place] [address] from Last 3 Months or Most Recently Relevant to Health Maintenance Insurance [facility] , [address] [place] [address] [facility] MEDICAID STAND ADULT Member Subscriber Plan / Payer (Ef fective 2023-Present) Name:Leonie Roman Relation to Subscriber:Self Name:Leonie Roman Payer ID:Not on file Group ID:Not on file Type:Not on file Address: [place] [phone] Care Teams Corporate Technical Recruiter Relationship Specialty Start Date End Date Rosalind Mitchell MD [address] [place] [phone] PCP - General Family Medicine 12/07/18
--- OUTSIDE RECORDS SUMMARY | 2024-08-02 10:36 | XMS_ITS | Encounter Summary ---
Author Organization [employer] Address [address] [place] [address] Care Team Providers Care A&P Mechanic Name Role Phone Rosalind Mitchell MD Primary Care Provider + Encounter Details Date Type Department Care Team (Late st Contact Info) Description 07/20/2024 2:00 PM EST Office Visit [facility] [address] [place], [place] [phone] Kate Casarez CN [address] [place], [place] [phone] Chlamydia (Primary Dx) Social History Tobacco Use Types Packs/Day Years Used Date Smoking Tobacco: Never Passive Smoke Exposure: Never Smokeless Tobacco: Never Alcohol Use Standard Drinks/Week Comments Not Currently [...] Orientation Straight 04/20/2022 10 :17 AM EDT documented as of this encounter Last Filed Vital Signs Vital Sign Reading [...] Mass Index 26.83 07/20/2024 2:07 PM EST documented in this encounter Progress Notes * Kate Casarez, [place] - 07/20/2024 2:00 PM EST Subjective Patient ID: Leonie Servin is a 24 y.o. female who presents for results At visit with Dr. Santana today to discuss pap results and colposcopy plan, he reviewed positive chlamydia from 02/2024 visit with me. Upon chart review, I misread positive chlamydia as negative, as abnormal result was not bolded or flagged. Doxycycline prescribed by Dr. Santana today with plan to retest there and then proceed with colposcopy. Denies fever, chills, pelvic pain, pain or bleeding with sex. 1 AMAB partner since just prior to 02/2024 visit. He is asymptomatic, trying to get seen for treatment. Review of Systems Constitutional: Negative for chills and fever. Genitourinary: Negative for dyspareunia, menstrual problem, pelvic pain, vaginal bleeding, vaginal discharge and vaginal pain. Objective BP 116/74 (BP Location: Left arm, Patient Position: Sitting, BP Cuff Size: Adult) Pulse 103 Temp 97.2 ??F (36.2 ??C) (Temporal) Resp 20 Ht 5' (1.524 m) Wt 137 lb 6.4 oz (62.3 kg) LMP 06/25/2024 (Exact Date) SpO2 99% BMI 26.83 kg/m?? Physical Exam Constitutional: Appearance: Normal appearance. Neurological: Mental Status: She is alert. Psychiatric: Mood and Affect: Mood normal. Behavior: Behavior normal. Assessment/Plan Diagnoses and all orders for this visit: Chlamydia Apologized profusely for my error. Reviewed internal steps that have been taken so far. Incident report written, and I have been in contact with Cecy Dominguez, Director of Risk Management, InfectionControl and Safety, to hopefully address issue and prevent recurrences. Leonie declined call from Cecy to address further, but knows she can reach out at any time if she wants. EPT given for partner. Abstain from sex x 7 days (until both complete treatment). PID precautions reviewed. Advised repeat testing no sooner than 4 weeks after treatment, as testing can be falsely positive prior to that. documented in this encounter Plan of Treatment Not on file documented as of this encounter Visit Diagnoses Diagnosis Chlamydia- Primary Other specified chlamydial infection, in conditions classified elsewhere and of unspecified site documented in this encounter Care Teams A&P Mechanic Relationship Specialty Start Date End Date Rosalind Mitchell MD [address] [place] [phone] PCP - General Family Medicine 12/07/18 documented as of this encounter
--- OUTSIDE RECORDS SUMMARY | 2024-08-02 10:36 | XMS_ITS | Encounter Summary ---
Author Organization [employer] Address [address] [place] [address] Care Team Providers Care Purchasing Clerk Name Role Phone Rosalind Mitchell MD Primary Care Provider + Encounter Details Date Type Department Care Team (Latest Contact Info) Description 07/20/2024 Travel Social History Tobacco Use Types Packs/Day Years [...] AM EDT documented as of this encounter Plan of Treatment Not on file documented as of this encounter Visit Diagnoses Not on filedocumented in this encounter Care Teams Purchasing Clerk Relationship Specialty Start Date End Date Rosalind Mitchell MD [address] [place] [phone] PCP - General Family Medicine 12/07/18 documented as of this encounter
== END 2024-08-02 09:41 | disposition home or self-care (01) ==
PROVIDERS: PCP Internal Medicine; Visit Provider Obstetrics & Gynecology
DX: A74.9 Chlamydial infection, unspecified (principal); R87.610 Atypical squamous cells of undetermined significance on cytologic smear of cervix (ASC-US)
CPT/HCPCS: 99213

== ENCOUNTER 2024-08-10 10:26 | Outpatient (REF) | payer OTHER, SELFPAY ==
--- OUTSIDE RECORDS SUMMARY | 2024-08-10 12:19 | XMS_ITS | Encounter Summary ---
Author Organization [employer] Address [address] [place] [address] Care Team Providers Care Quality Assurance Lab Technician Name Role Phone Rosalind Mitchell MD Primary Care Provider + Encounter Details Date Type Department Care Team (Late st Contact Info) Description 07/20/2024 2:00 PM EST Office Visit [facility] [address], [place] [phone] Kate Casarez CN [address], [place] [phone] Chlamydia (Primary Dx) Social History Tobacco Use [...] site documented in this encounter Care Teams Quality Assurance Lab Technician Relationship Specialty Start Date End Date Rosalind Mitchell MD [address] [place] [phone] PCP - General Family Medicine 12/07/18 documented as of this encounter
--- OUTSIDE RECORDS SUMMARY | 2024-08-10 12:19 | XMS_ITS | Encounter Summary ---
Author Organization [facility] Address [address] [place] [address] Care Team Providers Care Dry Sand Molder Name Role Phone Rosalind Mitchell MD Primary [...] on filedocumented in this encounter Care Teams Dry Sand Molder Relationship Specialty Start Date End Date Rosalind Mitchell MD [address] [place] [phone] PCP - General Family Medicine 12/07/18 documented as of this encounter
--- OUTSIDE RECORDS SUMMARY | 2024-08-10 12:19 | XMS_ITS | Clinical Summary ---
Author Organization [employer] Address [address] [place] [address] 7 [place] [address] Care Team Providers Care Home Care Provider Name Role Phone Rosalind Mitchell MD Primary [...] Overdue, will schedule one with me or lead press operator. Mammogram: Not due yet. Due to Fam [...] Description 07/20/2024 2:00 PM EST Office Visit [facility] [address] [place] [phone] Kate Casarez CNM Chlamydia (Primary Dx) 07/20/2024 [...] EST) CT PCR NOT DETECTED Not Detect. [facility] Comment:A not detected test result [...] psychologicalconsequences. NG PCR NOT DETECTED Not Detect. [facility] Comment:A not detected test result [...] AM EST 08/02/2024 3:20 PM EST Narrative [facility] - 08/03/2024 7:19 AM EST Vaginal us Generic External Data Provider LAB MICROBIOLOGY - GENERAL ORDERABLES Final Result [facility] [address] [place] [phone] * (ABNORMAL) Pap Smear (02/28/2024 9:40 AM EDT) SOURCE: SEE NOTE [facility] Comment:Cervix Report Status: TNP [facility] Clinical Information: SEE NOTE [facility] Comment:None given LMP: SEE NOTE [facility] Comment:NONE GIVEN Prev. PAP: SEE NOTE [facility] Comment:NONE GIVEN Prev. BX: SEE NOTE [facility] Comment:NONE GIVEN Statement Of Adequacy: SEE NOTE [facility] Comment:Satisfactory for tammie luation.Endocervical/transformation zone componentpresent. General Categorization: SEE NOTE(A) [facility] Comment:Cytology Results: Ep ithelial Cell Abnormality Interpretation/Result: SEE NOTE(A) [facility] Comment:Atypical Squamous Ce lls of UndeterminedSignificance (ASC-US) Cytology Comment SEE NOTE [facility] Comment:This Pap test has be en evaluated with computerassisted technology. Family Medicine Physician: SEE NOTE [facility] Comment:SL, CT(ASCP)CT scree deborah location: [place] [address] Review Family Medicine Physician: SEE NOTE [facility] Comment:MSM, CT(ASCP)CT scre ening location: [place] [address] Pathologist SEE NOTE [facility] Comment:Maria Luisa Friend. ,Board Certified in Anatomic and ClinicalPathology, Cytopathology and Immunopathology(electronic signature) PAP Infection SEE NOTE [facility] Comment:Shift in vaginal li ra suggestive of bacterialvaginosis. See Note SEE NOTE [facility] Comment:EXPLANATORY NOTE:The Pap is a screening test for cervical cancer. It isnot a diagnostic test and is subject to false negativeand false positive results. It is most reliable when asatisfactory sample, regularly obtained, is submittedwith relevant clinical findings and history, and whenthe Pap result is evaluated along with historic andcurrent clinical information.THIS TEST WAS PERFORMED AT:[facility] [place] [id number] MARTINEZ MD Pap Vial Vaginal structure / Unknown 02/28/2024 9:40 AM EDT 02/28/2024 6:47 PM EDT Narrative [facility] - 03/03/2024 3:12 PM EDT SEE SCANNED RESULTS IN EMR Kate Vazquezyaron [facility] PATHOLOGY ORDERABLES Final Result [facility] [address] [place] [phone] * HIV-1/2 Antigen and Antibodies, Fourth Generation, with Reflexes (05/29/2022 12:32 PM EST) HIV Antigen/Antibody, 4th Generation NON-REAC TIVE NON-REAC TIVE [facility] [place] [facility] [facility] [place] Comment: HIV-1 antigen and HIV-1/HIV-2 antibodies [...] ?? For additional information please refer to http://education.PrintEco.My eStore App/faq/MWF707 (This link is being provided for informational/ educational purposes only.) The performance of this assay has not been clinically validated in patients less than 2 years old. 05/29/2022 12:3 2 PM EST 05/29/2022 12:33 PM EST Kate Casarez [facility] BLOOD ORDERABLES Nuris l Result [facility] [address], [place] [address] [employer] [place] [employer] [facility] [address], [place] [address] from Last 3 Months or Most Recently Relevant to Health Maintenance Insurance [facility] , [address] [place] [address] [facility] ADULT Care Teams Home Care Provider Relationship Specialty Start Date End Date Rosalind Mitchell MD [address] [place] [phone] PCP - General Family Medicine 12/07/18
== END 2024-08-10 10:27 | disposition home or self-care (01) ==
LOC: HO.LNP 10:26
PROVIDERS: PCP Internal Medicine; Visit Provider Obstetrics & Gynecology
DX: Z32.02 Encounter for pregnancy test, result negative (principal); R87.610 Atypical squamous cells of undetermined significance on cytologic smear of cervix (ASC-US)
CPT/HCPCS: 57454; 81025; 88305

== ENCOUNTER 2024-08-10 10:26 | Outpatient (AMB) | payer OTHER, SELFPAY ==
--- NOTE | 2024-08-10 10:28 | A.OFFVIS_ITS ---
Vital Signs 08/10/24 10:29 Height 5 ft Weight 135 lb BMI 26.4 BP 100/60 Intake Visit Reasons: Colposcopy Inorganic Chemistry Professor Required: No Information Interpreted: non-clinical & clinical Engagement Quality Consultant: Engagement Quality Consultant Present (Christal MRAES) Accompanied by: Self / Same As Patient Allergies sulfamethoxazole [From BACTRIM] Allergy (Intermediate, Verified 08/10/24 10:38) RASH trimethoprim [From BACTRIM] Allergy (Intermediate, Verified 08/10/24 10:38) RASH HPI Comments Details: Presenting for colposcopy. 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 We thoroughly discussed the procedure itself, including its details, alternatives, and all associated risks. This included but not limited to the following complications such as bleeding, infection, and injury to the vagina, bladder, and vessels, as well as the potential need for transfusion with all its associated risks. Subsequently, the patient sign the consent. Pap smear result: LSIL. Urine test in office = Negative Procedure: During the procedure, the following steps were performed: A speculum was inserted, and acetic acid was applied. Colposcopy was conducted, allowing visualization of the transformation zone. Acetowhite lesions were identified at the 12+ 1+4 o'clock position. Cervical biopsies were obtained from the 12+ 1+ o'clock position, followed by an endocervical curettage (ECC). Vaginoscopy of the upper vagina revealed no evidence of aceto-white lesions. Hemostasis was achieved using Monsel solution, and the patient tolerated the procedure well. Post-Procedure Instructions: The patient was advised to promptly contact the office or the after hours answering service or go to the emergency room if experiencing a temperature exceeding 100.4?F, abdominal pain, nausea/vomiting, or bleeding. Additionally, the patient was instructed to abstain from vaginal intercourse and bathtub use. The patient confirmed understanding of these instructions. Discharge Instructions: The patient was instructed to schedule a follow-up appointment in 2 weeks for further evaluation and management. Please note that this note was generated using a voice recognition program, and errors may have occurred during lens blank gauger. [id number] of cervix including upper vagina with biopsy and ECC Procedure code (CPT) selection complete Results AMB Test Urine AMB Test Urine Negative Last Edit by Christal Ramírez CMA on 10:42 Results Reviewed Results Reviewed: Laboratory Last Values [facility]st Clinic Negative 08/10/24 10:42 Assessment & Plan Assessment & Plan (1) Atypical squamous cells of undetermined significance (ASC-US) on cervical Pap smear: Code(s): R87.610 - Atypical squamous cells of undetermined significance on cytologic smear of cervix (ASC-US) Category: Medical Plan: Colposcopy done, see procedure note Orders: Orders AMB HCG Urine Test Today Z32.02 - Encounter for test, result negative AMB Colposcopy Today R87.610 - Atypical squamous cells of undetermined s ignificance on cytologic smear of cervix (ASC-US) Coding Level of Care Code Procedure Only Diagnoses Atypical squamous cells of undetermined significance (ASC-US) on cervical Pap smear R87.610 CPT Codes Colposcopy - CPT: 42048-[id number] of cervix including upper vagina with biopsy and ECC ([id number])
[2024-08-10 10:29] VITALS: BP 100/60; BMI 26.4
--- OUTSIDE RECORDS SUMMARY | 2024-08-10 11:36 | XMS_ITS | Encounter Summary ---
Author Organization [employer] Address [address] [place] [address] Care Team Providers Care Geospatial Intelligence Analyst Name Role Phone Rosalind Mitchell MD Primary Care Provider + Encounter Details Date Type Department Care Team (Late st Contact Info) Description 07/20/2024 2:00 PM EST Office Visit [facility] [address] [place], [place] [phone] Kate Casarez CN [address] [place], [place] [phone] Chlamydia (Primary Dx) Social History Tobacco Use [...] site documented in this encounter Care Teams Geospatial Intelligence Analyst Relationship Specialty Start Date End Date Rosalind Mitchell MD [address] [place] [phone] PCP - General Family Medicine 12/07/18 documented as of this encounter
--- OUTSIDE RECORDS SUMMARY | 2024-08-10 11:36 | XMS_ITS | Encounter Summary ---
Author Organization [employer] Address [address] [place] [address] Care Team Providers Care Traveling Accountant Name Role Phone Rosalind Mitchell MD Primary [...] on filedocumented in this encounter Care Teams Traveling Accountant Relationship Specialty Start Date End Date Rosalind iMtchell MD [address] [place] [phone] PCP - General Family Medicine 12/07/18 documented as of this encounter
--- OUTSIDE RECORDS SUMMARY | 2024-08-10 11:37 | XMS_ITS | Clinical Summary ---
Author Organization [facility] Address [address] [place] [address] 7 [place] [address] Care Team Providers Care Hotel Or Motel Room Service Supervisor Name Role Phone Rosalind Mitchell MD Primary [...] Overdue, will schedule one with me or statistics professor. Mammogram: Not due yet. Due to Fam [...] Description 07/20/2024 2:00 PM EST Office Visit [facility] [address] [place] [phone] Kate Casarez CNM Chlamydia (Primary Dx) 07/20/2024 [...] Procedure Name Priority Date/Time Associated Diagnosis Comments CHLAMYDIA/N. GONORRHOEAE RNA, TMA, UROGENITAL Routine 08/02/2024 9:24 AM EST Atypical squamous cells of undetermined significance (ASCUS) on Papanicolaou smear of cervix [employer] PAP Routine 02/28/2024 9:40 AM EDT Cervical cancer screening PROPHYLAXIS - ADULT Routine 07/07/2023 3 :00 PM EST INTRAORAL - COMPLETE SERIES OF RADIOGRAPHIC IMAGES Routine 07/07/2023 3:00 PM EST PERIODIC ORAL EVALUATION - ESTABLISHED PATIENT Routine 07/07/2023 3:00 PM EST HIV 1/2 ANTIGEN/ANTIBODY, FOURTH GENERATION W/RFL Routine 05/29/2022 12:32 PM EST from Last 3 Months or Most Recently Relevant to Health Maintenance Results * Chlamydia/N. Gonorrhoeae RNA, TMA, Urogenitial (08/02/2024 9:24 AM EST) CT PCR NOT DETECTED Not Detect. [facility] Comment:A not detected test result does not exclude the possibilityof infection because test results can be affected byimproper specimen collection, concurrent antibiotic therapy,or the number of organisms in the specimen which may bebelow the sensitivity of the test. As with many diagnostictests, results from the Xpert CT/NG assay should beinterpreted in conjunction with other laboratory andclinical data available to the clinician.Xpert CT/NG performance has not been evaluated in patientsless than 14 years of age. The assay should not be used forthe evaluationof suspected sexual abuse or for other medico-legalindications. Additional testing is recommended in anycircumstance when false positive or false negative resultscould lead to adverse medical, social or psychologicalconsequences. NG PCR NOT DETECTED Not Detect. [facility] Comment:A not detected test result does not exclude the possibilityof infection because test results can be affected byimproper specimen collection, concurrent antibiotic therapy,or the number of organisms in the specimen which may bebelow the sensitivity of the test. As with many diagnostictests, results from the Xpert CT/NG assay should beinterpreted in conjunction with other laboratory andclinical data available to the clinician.Xpert CT/NG performance has not been evaluated in patientsless than 14 years of age. The assay should not be used forthe evaluationof suspected sexual abuse or for other medico-legalindications. Additional testing is recommended in anycircumstance when false positive or false negative resultscould lead to adverse medical, social or psychologicalconsequences. 08/02/2024 9:24 AM EST 08/02/2024 3:20 PM EST Narrative [facility] - 08/03/2024 7:19 AM EST Vaginal us Generic External Data Provider LAB MICROBIOLOGY - GENERAL ORDERABLES Final Result [facility] [address] [place] [phone] * (ABNORMAL) Pap Smear (02/28/2024 9:40 AM EDT) SOURCE: SEE NOTE [facility] Comment:Cervix Report Status: TNP [facility] Clinical Information: SEE NOTE [facility] Comment:None given LMP: SEE NOTE [facility] Comment:NONE GIVEN Prev. PAP: SEE NOTE [facility] Comment:NONE GIVEN Prev. BX: SEE NOTE [facility] Comment:NONE GIVEN Statement Of Adequacy: SEE NOTE [facility] Comment:Satisfactory for tammie luation.Endocervical/transformation zone componentpresent. General Categorization: SEE NOTE(A) [facility] Comment:Cytology Results: Ep ithelial Cell Abnormality Interpretation/Result: SEE NOTE(A) [facility] Comment:Atypical Squamous Ce lls of UndeterminedSignificance (ASC-US) Cytology Comment SEE NOTE [facility] Comment:This Pap test has be en evaluated with computerassisted technology. Fast Food Restaurant Manager: SEE NOTE [facility] Comment:SL, CT(ASCP)CT scree deborah location: [place] [address] Review Fast Food Restaurant Manager: SEE NOTE [facility] Comment:MSM, CT(ASCP)CT scre ening location: [place] [address] Pathologist SEE NOTE [facility] Comment:Maria Luisa Friend. ,Board Certified in Anatomic and ClinicalPathology, Cytopathology and Immunopathology(electronic signature) PAP Infection SEE NOTE [facility] Comment:Shift in vaginal li ra suggestive of bacterialvaginosis. See Note SEE NOTE [facility] Comment:EXPLANATORY NOTE:The Pap is a screening test for cervical cancer. It isnot a diagnostic test and is subject to false negativeand false positive results. It is most reliable when asatisfactory sample, regularly obtained, is submittedwith relevant clinical findings and history, and whenthe Pap result is evaluated along with historic andcurrent clinical information.THIS TEST WAS PERFORMED AT:[facility] [place] [id number] MARTINEZ MD Pap Vial Vaginal structure / Unknown 02/28/2024 9:40 AM EDT 02/28/2024 6:47 PM EDT Narrative [facility] - 03/03/2024 3:12 PM EDT SEE SCANNED RESULTS IN EMR Kate Vazquezyaron [facility] PATHOLOGY ORDERABLES Final Result [facility] [address] [place] [phone] * HIV-1/2 Antigen and Antibodies, Fourth Generation, with Reflexes (05/29/2022 12:32 PM EST) HIV Antigen/Antibody, 4th Generation NON-REAC TIVE NON-REAC TIVE [facility] [place] [facility] Comment: HIV-1 antigen and HIV-1/HIV-2 antibodies [...] ?? For additional information please refer to http://education.Second Decimal.Mezmeriz/faq/WAZ450 (This link is being provided for informational/ educational purposes only.) The performance of this assay has not been clinically validated in patients less than 2 years old. 05/29/2022 12:3 2 PM EST 05/29/2022 12:33 PM EST Kate Casarez [facility] BLOOD ORDERABLES Nuris l Result [facility] [address], [place] [address] [facility] [place] [facility] [address], [place] [address] from Last 3 Months or Most Recently Relevant to Health Maintenance Insurance [facility] , [address] [place] [address] [facility] ADULT Care Teams Hotel Or Motel Room Service Supervisor Relationship Specialty Start Date End Date Rosalind Mitchell MD [address] [place] [phone] PCP - General Family Medicine 12/07/18
== END 2024-08-10 11:03 | disposition home or self-care (01) ==
PROVIDERS: PCP Internal Medicine; Visit Provider Obstetrics & Gynecology
DX: Z32.02 Encounter for pregnancy test, result negative (principal); R87.610 Atypical squamous cells of undetermined significance on cytologic smear of cervix (ASC-US)
CPT/HCPCS: 57454

== ENCOUNTER 2024-09-25 15:20 | Outpatient (AMB) | payer OTHER, SELFPAY ==
--- NOTE | 2024-09-25 15:22 | A.OFFVIS_ITS ---
Intake Visit Reasons: Colpo Results Allergies sulfamethoxazole [From BACTRIM] Allergy (Intermediate, Verified 09/25/24 15:22) RASH trimethoprim [From BACTRIM] Allergy (Intermediate, Verified 09/25/24 15:22) RASH Is last menstrual period known: Yes Last menstrual period: 09/21/24 HPI Comments Details: Presenting post colpo for follow-up. The patient is doing well with no complaints. The pathology showed the following: A. Endocervix, curettage: Mildly inflamed endocervical and squamous mucosa with reactive changes. B. Cervix, 1 o'clock, biopsy: Inflamed cervical transformation zone mucosa with reactive changes. C. Cervix, 4 o'clock, biopsy: Mildly inflamed endocervical and squamous mucosa with reactive changes. D. 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 Female Reproductive History Menstrual Age of Menarche: 13 Date of last menstrual period: 09/21/24 Review of Systems Const All systems reviewed & are unremarkable except as noted in HPI and below Reports as per HPI and Reports no additional complaints GI Reports no additional complaints Reports no additional complaints Assessment & Plan Assessment & Plan (1) Atypical squamous cells of undetermined significance (ASC-US) on cervical Pap smear: Code(s): R87.610 - Atypical squamous cells of undetermined significance on cytologic smear of cervix (ASC-US) Category: Medical Plan: Discussed with the patient the pathology results of the colposcopy biopsies & endocervical curettage. Discussed with the patient the sensitivity specificity, positive and negative predictive value in detecting cervical cancer in addition discussed the regression, persistence and progression rates. Recommended co- testing in 12 months, if cytology and or HPV are abnormal will proceed was colposcopy biopsy and endocervical curettage. Instructions given to the patient to schedule a co test appointment in 1 year. All questions answered the patient verbalized understanding. Coding Level of Care Code Est Pt Level 3 (60298) Diagnoses Atypical squamous cells of undetermined significance (ASC-US) on cervical Pap smear R87.610
--- OUTSIDE RECORDS SUMMARY | 2024-09-25 18:10 | XMS_ITS | Clinical Summary ---
Author Organization [employer] Address [address] [place] [address] 7 [place] [address] Care Team Providers Care Stone Setter Name Role Phone Rosalind Mitchell MD Primary [...] Overdue, will schedule one with me or final dressing cutter. Mammogram: Not due yet. Due to Fam [...] Encounters Date Type Department Care Team Description 08/15/2024 Orders Only [facility] CH[facility] MED & PEDS [address] [place] [address] Provider, MD Bev 07/20/2024 2:00 PM EST Office Visit [facility] MEDICINE [address], [place] [phone] Kate Casarez, CLOVIS Chlamydia (Primary Dx) 07/20/2024 Travel from Last [...] 2024 , 04/10/2019, 03/31/2018, Additional history exists Dental X-Ray: Bitewings 07/08/2024 07/07/2023 SDOH Screening 12/08/2024 12/09/2023 Family Planning (PISQ) 07/20/2025 07/20/2024 Tobacco Screening 07/20/2025 07/20/2024 Dental X-Ray: Full Mouth 07/08/2026 07/07/2023 Pap Smear 08/11/2026 02/28/2024, 04/22, 04/16/2021 DTaP/Tdap/Td Vaccines (8 - Td or Tdap) 02/07/2031 02/07/2021, 03/20/2011, 03/09/2005, Additional history exists Zoster Vaccines (1 of 2) 2050 RSV Patients and Patients Aged 60 years or older (1 - 1-dose 75+ series) 2075 Hepatitis B Vaccines Completed 2000, 2000, 2000 HIB Vaccines Completed 07/21/2001, 0 10/2000, 2000, Additional history exists IPV Vaccines Completed 03/09/2005, 0 10/2000, 2000, Additional history exists HPV Vaccines Completed 12/28/2012, 06/22, 05/20/2012 Meningococcal Vaccine Aged Out 07/05/2015, 011 No longer eligible based on patient's age to complete this topic Hepatitis A Vaccines Completed 05/11/2016, 07/05/19 16 HIV Screening Completed 05/29/2022, 04/21/2021 Colposcopy Completed 08/11/2024, 08/10/2023 RSV under 20 months Aged Out No longe r eligible based on patient's age to complete this topic Rotavirus Vaccines Aged Out No longer eligible based on patient's age to complete this topic Procedures Procedure Name Priority Date/Time Associated Diagnosis Comments COLPOSCOPY Routine 08/11/2024 9:46 AM EST HEMATOXYLIN AND EOSIN STAIN Routine 08/10/2024 11:00 AM EST Atypical squamous cells of undetermined significance (ASCUS) on Papanicolaou smear of cervix CHLAMYDIA/N. GONORRHOEAE RNA, TMA, UROGENITAL Routine 08/02/2024 [...] Recently Relevant to Health Maintenance Results * Colposcopy (08/11/2024 9:46 AM EST) us Historical Provider MD IN CLINIC/BEDSIDE ORDERAB LES Final Result * Hematoxylin and Eosin Stain (08/10/2024 11:00 AM EST) 08/10/2024 11:0 0 AM EST 08/11/2024 8:03 AM EST Narrative [facility] - 08/14/2024 2:08 PM EST ----- ------- Name: Leonie Roman ? Age/Sex: 24/F ? : 2000 Unit#: [id number] ?? Attend Dr: Trell Santana MD ?Re08/10/24 ?Status: DEP REF ? Location: HO.LNP ?Disch: ? ----- ------- SPEC : [id number] ?RECD: 08/11/24 ? STATUS: ??SOUT ? REQ NUM: [id number] ? JOSE MANUEL: 08/10/24-1100 ? SUBM DR: Trell Santana MD ? ENTERED: ??08/11/24 ?SP TYPE: Surgical ? OTHR DR: Rosalind Mitchell MD ? ORDERED: ??HE Stain/11, Gross Micro L4/4 ? Diagnosis ?? A. ??Endocervix, curettage: ??Mildly inflamed endocervical and squamous mucosa with ?? reactive changes. ? B. ??Cervix, 1 o'clock, biopsy: ??Inflamed cervical transformation zone mucosa with ?? reactive changes. ? C. ??Cervix, 4 o'clock, biopsy: ??Mildly inflamed endocervical and squamous mucosa with ?? reactive changes. ? D. ??Cervix, 12 o'clock, biopsy: ??Squamous mucosa within normal limits; no endocervical ?? epithelium identified. ?Clinical History ASCUS ?Microscopic Description A-D. ??Microscopic sections reviewed. ? Material Received ?? A. ECC ?? B. Cx bx 1 o'clock ?? C. Cx bx 4 o'clock ?? D. Cx bx 12 o'clock ? Gross Description Received in 4 parts. A. Received in formalin labeled ?ECC? are fragments of potter-white soft tissue mixed with mucus and clotted blood forming an aggregate measuring 1.2 x 1.0 x 0.2 cm which is wrapped in lens paper and entirely submitted for microscopic examination, multiple pieces in cassette A. B. Received in formalin labeled ?CX Bx 1? is a fragment of rubbery, white tissue measuring 0.3 cm in greatest dimension which is wrapped in lens paper and entirely submitted for microscopic examination, 1 piece in cassette B. C. Received in formalin labeled ?CX Bx 4? is a fragment of rubbery, white tissue measuring 0.4 cm in greatest dimension which is wrapped in lens paper and entirely submitted for ? CONTINUED ON NEXT PAGE ----- ------- Name: Leonie Roman ? Age/Sex: 24/F ? : 2000 Unit#: [id number] ?? Attend Dr: Trell Santana MD ?Re08/10/24 ?Status: DEP REF ? Location: HO.LNP ?Disch: ? ----- ------- SPEC : [id number] ?RECD: 08/11/24 ? STATUS: ??SOUT ? REQ NUM: [id number] ? JOSE MANUEL: 08/10/24-1099 ? SUBM DR: Trell Santana MD ? ENTERED: ??08/11/24-809 ?SP TYPE: Surgical ? OTHR DR: Rosalind Mitchell MD ? ORDERED: ??HE Stain/11, Gross Micro L4/4 ? Gross Description ?(Continued) microscopic examination, 1 piece in cassette C. D. Received in formalin labeled ?CX Bx 12? is a fragment of rubbery, white tissue measuring 0.4 cm in greatest dimension which is wrapped in lens paper and entirely submitted for microscopic examination, 1 piece in cassette D. ([facility]) Copies To: ?? Rosalind Mitchell MD ?? [facility] ?? [address] ?? [place] [address] ?? [phone] ?? Trell Santana MD ?? [facility] ?? [address] ?? [place] [address] ?? [phone] ----- ------- Signed (signature on file) Froylan Pagan MD 08/14/24 1408 ? ----- ------- ? END OF REPORT ? us Generic External Data Provider LAB BLOOD ORDERAB LES Final Result [facility] [address] [place] [phone] * Chlamydia/N. Gonorrhoeae RNA, TMA, Urogenitial (08/02/2024 9:24 AM EST) [facility] CT PCR NOT DETECTED Not Detect. [facility] Comment:A not detected test result [...] psychologicalconsequences. NG PCR NOT DETECTED Not Detect. [facility] Comment:A not detected test result [...] AM EST 08/02/2024 3:20 PM EST Narrative [facility] - 08/03/2024 7:19 AM EST Vaginal us Generic External Data Provider LAB MICROBIOLOGY - GENERAL ORDERABLES Final Result [facility] [address] [place] [address] [phone] * (ABNORMAL) Pap Smear (02/28/2024 9:40 AM EDT) SOURCE: SEE NOTE [facility] Comment:Cervix Report Status: TNP [facility] Clinical Information: SEE NOTE [facility] Comment:None given LMP: SEE NOTE [facility] Comment:NONE GIVEN Prev. PAP: SEE NOTE [facility] Comment:NONE GIVEN Prev. BX: SEE NOTE [facility] Comment:NONE GIVEN Statement Of Adequacy: SEE NOTE [facility] Comment:Satisfactory for tammie luation.Endocervical/transformation zone componentpresent. General Categorization: SEE NOTE(A) [facility] Comment:Cytology Results: Ep ithelial Cell Abnormality Interpretation/Result: SEE NOTE(A) [facility] Comment:Atypical Squamous Ce lls of UndeterminedSignificance (ASC-US) Cytology Comment SEE NOTE [facility] Comment:This Pap test has be en evaluated with computerassisted technology. Disability Manager: SEE NOTE [facility] Comment:SL, CT(ASCP)CT scree deborah location: [address] [address] Review Disability Manager: SEE NOTE [facility] Comment:MSM, CT(ASCP)CT scre ening location: [address] [address] Pathologist SEE NOTE [facility] Comment:Maria Luisa Friend. ,Board Certified in Anatomic and ClinicalPathology, Cytopathology and Immunopathology(electronic signature) PAP Infection SEE NOTE [facility] Comment:Shift in vaginal li ra suggestive of bacterialvaginosis. See Note SEE NOTE [facility] Comment:EXPLANATORY NOTE:The Pap is a screening test for cervical cancer. It isnot a diagnostic test and is subject to false negativeand false positive results. It is most reliable when asatisfactory sample, regularly obtained, is submittedwith relevant clinical findings and history, and whenthe Pap result is evaluated along with historic andcurrent clinical information.THIS TEST WAS PERFORMED AT:[facility] [address] [id number] MARTINEZ MD Pap Vial Vaginal structure / Unknown 02/28/2024 9:40 AM EDT 02/28/2024 6:47 PM EDT Narrative [facility] - 03/03/2024 3:12 PM EDT SEE SCANNED RESULTS IN EMR Kate MORA LAB PATHOLOGY ORDERABLES Final Result [facility] [address] [place] [address] [phone] * HIV-1/2 Antigen and Antibodies, Fourth Generation, with Reflexes (05/29/2022 12:32 PM EST) HIV Antigen/Antibody, 4th Generation NON-REAC TIVE NON-REAC TIVE [employer] [facility] Comment: HIV-1 antigen and HIV-1/HIV-2 antibodies [...] ?? For additional information please refer to http://[employer]/faq/YFF321 (This link is being provided for informational/ educational purposes only.) The performance of this assay has not been clinically validated in patients less than 2 years old. 05/29/2022 12:3 2 PM EST 05/29/2022 12:33 PM EST Kate Casarez [facility] LAB BLOOD ORDERABLES Nuris king Result [facility] [address], [place] [address] [employer] [facility] [address], [place] [address] from Last 3 Months or Most Recently Relevant to Health Maintenance Insurance [facility] , [address] [place] [address] [facility] MEDICAID [facility] ADULT Care Teams Stone Setter Relationship Specialty Start Date End Date Rosalind Mitchell MD [address] [place] [phone] PCP - General Family Medicine 12/07/18
--- OUTSIDE RECORDS SUMMARY | 2024-09-25 18:10 | XMS_ITS | Encounter Summary ---
Author Organization [employer] Address [address] [place] [address] Care Team Providers Care Stabilizer Operator Name Role Phone Rosalind Mitchell MD Primary Care Provider + Encounter Details Date Type Department Care Team ([facility] st Contact Info) Description 08/15/2024 Orders Only [facility] MED & PEDS [address] [place], [place] [phone] ProviderBev MD Social History Tobacco Use Types Packs/Day Years [...] on file documented as of this encounter Procedures Procedure Name Priority Date/Time Associated Diagnosis Comments COLPOSCOPY Routine 08/11/2024 9:46 AM EST documented in this encounter Results * Colposcopy (08/11/2024 9:46 AM EST) us Historical Provider MD IN CLINIC/BEDSIDE ORDERAB LES Final Result documented in this encounter Visit Diagnoses Not on filedocumented in this encounter Care Teams Stabilizer Operator Relationship Specialty Start Date End Date Rosalind Mitchell MD [address] [place] [phone] PCP - General Family Medicine 12/07/18 documented as of this encounter
== END 2024-09-25 16:18 | disposition home or self-care (01) ==
LOC: HO.HWS 15:20
PROVIDERS: PCP Internal Medicine; Visit Provider Obstetrics & Gynecology
DX: R87.610 Atypical squamous cells of undetermined significance on cytologic smear of cervix (ASC-US) (principal)
CPT/HCPCS: 99213

== ENCOUNTER 2025-02-27 18:35 | Outpatient (REF) | payer OTHER, SELFPAY ==
--- OUTSIDE RECORDS SUMMARY | 2025-02-22 09:00 | XMS_ITS | Encounter Summary ---
Author Organization [employer] Address [address] [facility] [place] [address] Care Team Providers Care Crochet Machine Operator Name Role Phone Rosalind Mitchell MD Primary Care Provider + Reason for Visit * Reason Comments Migraine Encounter Details Date Type Department Care Team (Latest Contact Info) Description 02/22/2025 9:00 AM EDT Office Visit [facility] MEDICINE [address] [place], [place] [phone] Rosalind Mitchell MD [address] [place], [place] [phone] Migraine without aura, not refractory (Primary Dx); Mild persistent asthma without complication; Overweight; Dietary counseling; Exercise counseling; Migraine without aura and without status migrainosus, not intractable; Sprain of interphalangeal joint of left little finger, initial encounter; Encounter for immunization Social History Tobacco Use Types Packs/Day Years Used Date Smoking Tobacco: Never Passive Smoke Exposure: Never Smokeless Tobacco: Never Alcohol Use Standard Drinks/Week Comments Not Currently 0 (1 standard drink = 0.6 oz pur e alcohol) oca Depression Answer Date Recorded Patient Health Questionnaire-9 Score 3 02/22/2025 Patient Health Questionnaire-9 Score 3 02/22/2025 Last PHQ-9: Questionnaire Data Not on file 0 02/22/2025 Housing Stability Answer Date Recorded What is your housing situation today? I have keshawn watters 02/22/[address] you li ve. Do you have problems with any of the following? None of the above 02/22/2025 Food Insecurity Answer Date Recorded Within the past 12 months, y ou worried that your food would run out before you got money to buy more: Never True 02/22/2025 Within the past 12 months,th e food you bought just didn't last and you didn't have enough money to get more: Never True 09/2024 Transportation Answer Date Recorded In the past 12 months, has l ack of transportation kept you from medical appts, meetings, work or from getting things needed for daily living? No 04/19/2023 Utilities Answer Date Recorded In the past 12 months, has t he [employer], gas, oil or water company threatened to shut off services in your home? No 04/19/2023 Depression Answer Date Recorded Patient Health Questionnaire-2 Score 0 02/22/2025 Internet Access Answer Date Recorded Internet Access [...] Sign Reading Time Taken Comments Blood Pressure 102/58 02/22/2025 9:02 AM EDT Pulse 84 02/22/2025 9:02 AM EDT Temperature 37.2 C (98.9 F) 02/22/2025 9:02 AM EDT Respiratory Rate 18 02/22/2025 9:02 AM EDT Oxygen Saturation - - Inhaled Oxygen Concentration - - Weight 63.8 kg (140 lb 9.6 oz) 02/22/2025 9:02 A M EDT Height 154.9 cm (5' 1 ) 02/22/2025 9:02 AM EDT Body Mass Index 26.57 02/22/2025 9:02 AM EDT documented in this encounter Functional Status * Over the past 2 weeks, how often have you been bothered by any of the following problems? Question Answer Date of Assessment Author Patient Health Questionnaire-2 Score 0 09/2024 9:47 AM EDT Jannet Mcmahon MA * Little interest or pleasure in doing things Answer Date of Assessment Author Not at all 02/22/2025 9:47 AM EDT Jannet Mcmahon MA * Feeling down, depressed, or hopeless Answer Date of Assessment Author Not at all 02/22/2025 9:47 AM EDT Jannet Mcmahon MA * Trouble falling or staying asleep, or sleeping too much Answer Date of Assessment Author Not at all 02/22/2025 9:47 AM EDT Jannet Mcmahon MA * Feeling tired or having little energy Answer Date of Assessment Author Nearly every day 02/22/2025 9:47 AM EDT Jannet Mcmahon MA * Poor appetite or overeating Answer Date of Assessment Author Not at all 02/22/2025 9:47 AM EDT Jannet Mcmahon MA * Feeling bad about yourself - or that you are a failure or have let yourself or your family down Answer Date of Assessment Author Not at all 02/22/2025 9:47 AM Jannet Franco MA * Trouble concentrating on things, such as reading the newspaper or watching television Answer Date of Assessment Author Not at all 02/22/2025 9:47 AM Jannet Franco MA * Moving or speaking so slowly that other people could have noticed? Or the opposite - being so fidgety or restless that you have been moving around a lot more than usual. Answer Date of Assessment Author Not at all 02/22/2025 9:47 AM Jannet Franco MA * Thoughts that you would be better off or hurting yourself in some way Answer Date of Assessment Author Not at all 02/22/2025 9:47 AM Jannet Franco MA * Patient Health Questionnaire-9 Score Answer Date of Assessment Author 3 02/22/2025 9:47 AM Jannet Franco MA * How difficult have these problems made it for you to do your work, take care of things at home, or get along with other people? Answer Date of Assessment Author Somewhat difficult 02/22/2025 9:47 AM Jannet Rubin MA documented as of this encounter Plan of Treatment Scheduled Orders Name Type Priority Associated Diagnoses Orde r Schedule XR FINGER 5TH LT 2V Imaging Routine Sprain of interphalangeal joint of left little finger, initial encounter Expected: 02/22/2025, Expires: 02/22/2026 documented as of this encounter Procedures Procedure Name Priority Date/Time Associated Diagnosis Comments POCT GLUCOSE Routine 02/22/2025 9:45 AM EDT Migraine without aura, not refractory POCT HEMOGLOBIN Routine 02/22/2025 9:44 AM EDT Migraine without aura, not refractory documented in this encounter Results * POCT Glucose (02/22/2025 9:45 AM EDT) Glucose Blood, POC 116 60 - 200 mg/dL QC Media Lot # [id number] Lot# Expiration Date 113,025 Blood Capillary blood specimen / Unknown 02/22/2025 9:45 AM EDT Rosalind Mitchell MD POINT OF CARE TEST ENTER /EDIT ORDERABLES Final Result * POCT Hemoglobin (02/22/2025 9:44 AM EDT) Hemoglobin 13.6 12.0 - 15.0 QC Media Lot # [id number] Lot# Expiration Date , Blood 02/22/2025 9:44 AM EDT Rosalind Mitchell MD POINT OF CARE TEST ENTER /EDIT ORDERABLES Final Result documented in this encounter Visit Diagnoses Diagnosis Migraine without aura, not refractory- Primary Mild persistent asthma without complication Overweight Dietary counseling Dietary surveillance and counseling Exercise counseling Migraine without aura and without status migrainosus, not intractable Sprain of interphalangeal joint of left little finger, initial encounter Encounter for immunization documented in this encounter Additional Health Concerns Assessment Noted Time PHQ-9 Depression Total Score: 3 02/23/20 25 9:47 AM EDT documented as of this encounter Care Teams Crochet Machine Operator Relationship Specialty Start Date End Date Rosalind Mitchell MD [address] [place] [phone] PCP - General Family Medicine 12/07/18 documented as of this encounter
--- OUTSIDE RECORDS SUMMARY | 2025-02-27 14:45 | XMS_ITS | Encounter Summary ---
Author Organization [employer] Address [address] [place] [address] [address] [place] [address] Care Team Providers Care Corrections Specialist Name Role Phone Rosalind Mitchell MD Primary Care Provider + Reason for Referral * Imaging (Urgent) - Authorized Specialty Diagnoses / Procedures Referred By Contac t Referred To Contact Radiology Diagnoses Checking of intrauterine device Dysmenorrhea Procedures US Pelvis Transvaginal Kate aCsarez CNM [address] [place] [address] Phone: tel: fax: [address] Phone: tel: fax: Referral ID Status Reason Start Date Expiration Date V isits Requested Visits Authorized [id number] Authorized 02/27/2025 02/27/2026 1 1 * Imaging (Urgent) - Authorized Specialty Diagnoses / Procedures Referred By Contac t Referred To Contact Radiology Diagnoses Checking of intrauterine device Dysmenorrhea Procedures Us Pelvis complete Kate Casarez CNM [address] [place] [address] Phone: tel: fax: [address] Phone: tel: fax: Referral ID Status Reason Start Date Expiration Date V isits Requested Visits Authorized [id number] Authorized 02/27/2025 02/27/2026 1 1 Reason for Visit * Reason Comments pap smear/ pelvic exam Pelvic exam/ pap smear Encounter Details Date Type Department Care Team (Latest Contact Info) Description 02/27/2025 2:45 PM EDT Procedure Visit [facility] [address] [place], [place] [phone] Kate Casarez CNM [address] [place] [address] Urinary symptom or sign (Primary Dx); Vaginal discharge; Checking of intrauterine device; Dysmenorrhea Social History Tobacco Use Types Packs/Day Years [...] getting things needed for daily living? No 02/27/2025 Utilities Answer Date Recorded In the past 12 months, has t he electric, gas, oil or water company threatened to shut off services in your home? No 02/27/2025 Depression Answer Date Recorded Patient Health Questionnaire-2 Score 0 02/22/2025 Internet Access Answer Date Recorded Internet Access Q1 Yes 02/27/2025 Internet Access Q2 Not on file 02/27/2025 Comments No Intention Date Recorded No desire to become (finding) 0 02/27/2025 Sex and Gender Information Value Date Recorded Sex Assigned at Female 04/20/2022 10:17 AM EDT Legal Sex Female 10:17 AM EDT Gender Identity Female 04/20/2022 10:17 AM EDT Sexual Orientation Straight 04/20/2022 10 :17 AM EDT documented as of this encounter Last Filed Vital Signs Vital Sign Reading Time Taken Comments Blood Pressure 118/68 02/27/2025 2:57 PM EDT Pulse 96 02/27/2025 2:57 PM EDT Temperature 36.5 C (97.7 F) 02/27/2025 2:57 PM EDT Respiratory Rate 20 02/27/2025 2:57 PM EDT Oxygen Saturation - - Inhaled Oxygen Concentration - - Weight 62.8 kg (138 lb 8 oz) 02/27/2025 2:57 PM EDT Height 166.4 cm (5' 5.5 ) 02/27/2025 2:57 PM EDT Body Mass Index 22.7 02/27/2025 2:57 PM EDT documented in this encounter Functional Status * Over the last 2 weeks, how often have you been bothered by any of the following problems? Question Answer Date of Assessment Author Feeling nervous, anxious, or on edge 2 02/27/2025 3:07 PM EDT Pema Hart MA Not being able to stop or control worrying 2 02/27/2025 3:07 PM EDT Pema Hart MA Worrying too much about different things 2 02/27/2025 3:07 PM EDT Pema Hart MA Trouble relaxing 2 02/27/2025 3:07 PM EDT Pema Silva MA Being so restless that it is hard to sit still 0 02/27/2025 3:07 PM EDT Pema Hart MA Becoming easily annoyed or irritable 0 02/27/2025 3:07 PM EDT Pema Hart MA Feeling afraid as if something awful might happen 0 02/27/2025 3:07 PM EDT Pema Hart MA GRISEL-7 Total Score 8 02/27/2025 3:07 PM EDT Pema Hart MA documented as of this encounter Progress Notes * Kate Casarez, CNM - 02/27/2025 2:45 PM EDT Subjective Patient ID: Leonie Servin is a 24 y.o. 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 Chlamydia retest negative 07/2024. Colposcopy negative 07/2024, done for previous ASCUS pap x 2. Planis for pap 07/2025. ParaGard inserted 2017. Happy with method. Ibuprofen working fairly well for cramping. Needs refill. Also notes cramping after exercising. Monthly menses, no heavy bleeding. No change in partner. 1 AMAB partner, no safety concerns. Not planning in the next year. Notes leaking of urine or vaginal fluid for past few months. No urge incontinence, but maybe stress incontinence. No coital incontinence. No other vaginal or urinary symptoms. No triggering factors. No back pain. Review of Systems Gastrointestinal: Negative for constipation. Genitourinary: Positive for menstrual problem and vaginal discharge. Negative for dyspareunia, dysuria, frequency, genital sores, hematuria, pelvic pain, urgency, vaginal bleeding and vaginal pain. No abnormal bleeding Objective BP 118/68 (BP Location: Left arm, Patient Position: Sitting, BP Cuff Size: Adult) Pulse 96 Temp97.7 ??F (36.5 ??C) (Oral) Resp 20 Ht 5' 5.5 (1.664 m) Wt 138 lb 8 oz (62.8 kg) LMP 02/27/2025 (Exact Date) BMI 22.70 kg/m?? 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 Constitutional: Appearance: Normal appearance. Genitourinary: General: Normal vulva. Labia: Right: No rash, tenderness, lesion or injury. Left: No rash, tenderness, lesion or injury. Vagina: Normal. No signs of injury and foreign body. No vaginal discharge, erythema, tenderness, bleeding or lesions. Cervix: No cervical motion tenderness, discharge, friability, lesion, erythema, cervical bleeding or eversion. Uterus: Normal. Not enlarged and not tender. Adnexa: Right adnexa normal and left adnexa normal. Right: No mass, tenderness or fullness. Left: No mass, tenderness or fullness. Comments: IUD strings noted. Body of IUD nonpalpable. Poor tone with Kegels, no prolapse with Valsalva. Menses noted. Neurological: Mental Status: She is alert. Psychiatric: Mood and Affect: Mood normal. Behavior: Behavior normal. Assessment/Plan Diagnoses and all orders for this visit: Urinary symptom or sign - POCT urinalysis dipstick manually resulted - Culture, Urine, Routine Blood on UA expected as menstruating. Will send culture and treat positive results. Kegels taught as this seems more like stress urinary incontinence. If all testing negative, will advise followup with PCP to rule out other causes for new onset incontinence. Vaginal discharge - Bacterial Vaginosis Panel Exam and history more suggestive of urinary incontinence, but will send bacterial vaginosis swab asprecaution and treat positive results. Checking of intrauterine device - Us Pelvis complete; Future - US Pelvis Transvaginal; Future Benign exam today. Will order ultrasound in light of worsening cramping. Overall happy with IUD, but knows she can remove at any time. Dysmenorrhea - Us Pelvis complete; Future - US Pelvis Transvaginal; Future Benign exam today. Will order ultrasound in light of worsening cramping. Ibuprofen renewed. Other orders - ibuprofen (IBU) 800 MG tablet; 1 tablet every 8 hours with food during menses, up to 7 days. Would like to have followup pap here. Will have desk schedule for 07/2025. documented in this encounter Plan of Treatment Scheduled Orders Name Type Priority Associated Diagnoses Orde r Schedule Culture, Urine, Routine Microbiology Routine Urinary symptom or sign Ordered: 02/27/2025 Bacterial Vaginosis Panel Microbiology Routine Vaginal discharge Ordered: 02/27/2025 Us Pelvis complete Imaging Urgent Checking of intrauterine device Dysmenorrhea Expected: 02/27/2025, Expires: 02/27/2026 US Pelvis Transvaginal Imaging Urgent Checking of intrauterine device Dysmenorrhea Expected: 02/27/2025, Expires: 02/27/2026 documented as of this encounter Procedures Procedure Name Priority Date/Time Associated Diagnosis Comments POCT URINALYSIS DIPSTICK Routine 02/27/2025 3:29 PM EDT Urinary symptom or sign documented in this encounter Results * (ABNORMAL) POCT urinalysis dipstick manually resulted (02/27/2025 3:29 PM EDT) Color, UA Yellow Clarity, UA Clear Glucose, UA Negative Bilirubin, UA Negative Ketones, UA Negative Spec Grav, UA 1.020 Blood, UA Positive(A) Negative, None Detected Comment:moderate pH, UA 6.5 Protein, UA Trace Comment:30mg/dl Urobilinogen, UA 0.2 Leukocytes, UA Trace Negative, Rare, Trace Nitrite, UA Negative Negative, None Detected Appearance, UA yellow clear QC Media Lot # [id number] Lot# Expiration Date 33,[id number] Urine 02/27/2025 3:29 PM EDT Kate MORA POINT OF CARE TEST ENTER/ EDIT ORDERABLES Final Result documented in this encounter Visit Diagnoses Diagnosis Urinary symptom or sign- Primary Vaginal discharge Leukorrhea, not specified as infective Checking of intrauterine device Dysmenorrhea documented in this encounter Additional Health Concerns Assessment Noted Time PHQ-9 Depression Total Score: 3 02/23/20 25 9:47 AM EDT documented as of this encounter Care Teams Corrections Specialist Relationship Specialty Start Date End Date Rosalind Mitchell MD [address] [place] [phone] PCP - General Family Medicine 12/07/18 documented as of this encounter"
--- OUTSIDE RECORDS SUMMARY | 2025-02-27 18:38 | XMS_ITS | Encounter Summary ---
Author Organization [employer] Address [address] [facility] [address] [place] [address] Care Team Providers Care Executive Vice President Business Development Name Role Phone Rosalind Mitchell MD Primary Care Provider + Encounter Details Date Type Department Care Team (Late st Contact Info) Description 08/15/2024 Orders Only [facility] [address] [place], [place] [phone] Provider, MD Bev Social History Tobacco Use Types Packs/Day Years [...] on filedocumented in this encounter Care Teams Executive Vice President Business Development Relationship Specialty Start Date End Date Rosalind Mitchell MD [address] [place] [phone] PCP - General Family Medicine 12/07/18 documented as of this encounter
--- OUTSIDE RECORDS SUMMARY | 2025-02-27 18:38 | XMS_ITS | Clinical Summary ---
Author Organization [employer] Address [address] [facility] 7t [place] [address] Care Team Providers Care Granite Installer Name Role Phone Rosalind Mitchell MD Primary Care Provider + Allergies Active Allergy Reactions Criticality Noted Date Comments Sulfa Antibiotics 11/13/2021 Sulfamethoxazole 09/03/2017 Trimethoprim 09/03/2017 Medications hydrOXYzine pamoate (Vistaril) 100 MG capsule TOME KAREN C PSULA TODOS LOS D AL ACOSTARSE 05/16/20 23 Active citalopram (CeleXA) 20 MG tablet TOME KAREN TABLETA TODOS LOS D 04/08/20 23 Active witch keven-glycerin (Tucks) pad Apply topically if needed for irritation. 60 each 2 02/23/20 24 Active ondansetron (Zofran) 4 MG tabletIndicatio ns:Migraine without aura and without status migrainosus, not intractable TOME 1 TABLETA POR VIA ORAL TODOS LOS STAUFFER CUANDO SEA NECESARIO PARA LAS NAUSEAS Y EL VOMITO 18 tablet 1 01/02/20 25 Active albuterol 108 (90 Base) MCG/ACT inhaler Inhale 2 puffs every 6 (six) hours if needed for wheezing. 18 g 02/23/20 25 026 Active SUMAtriptan (Imitrex) 100 MG tabletIndicatio ns:Migraine without aura and without status migrainosus, not intractable TAKE 1 TABLET BY MOUTH NEEDED AT ONSET OF HEADACHE FOR 1 DOSE. MAY REPEAT DOSE IN 2 HOURS IF NOT RELIEVE. DO NOT EXCEED 2 DOSES IN 24 HOURS. 12 tablet 5 02/23/20 25 Active ibuprofen (IBU) 800 MG tablet 1 tablet every 8 hours with food during menses, up to 7 days. 42 tablet 02/28/20 25 Active ibuprofen (IBU) 800 MG tablet 1 tablet every 8 hours with food during menses, up to 7 days. 42 tablet 04/24/20 24 025 Discontinued(Re order (will not trigger notification to Pharmacy)) SUMAtriptan (Imitrex) 50 MG tabletIndicatio ns:Migraine without aura and without status migrainosus, not intractable Take 1 tablet (50 mg) by mouth 1 (one) time if needed for migraine. May repeat dose once in 2 hours if no relief. Do not exceed 2 doses in 24 hours. 15 tablet 1 12/12/19 25 025 Discontinued SUMAtriptan (Imitrex) 50 MG tabletIndicatio ns:Migraine without aura and without status migrainosus, not intractable TAKE 1 TAB 1 TIME IF NEEDED FOR MIGRAINE. MAY REPEAT ONCE IN 2 HOURS IF NO RELIEF. MAX 2 TABS/24 HRS 12 tablet 2 02/07/20 25 025 Discontinued(Re order (will not trigger notification to Pharmacy)) albuterol 108 (90 Base) MCG/ACT inhaler Inhale 2 puffs every 6 (six) hours if needed for wheezing. 18 g 02/23/20 25 025 Discontinued(Re order (will not trigger notification to Pharmacy)) SUMAtriptan (Imitrex) 100 MG tabletIndicatio ns:Migraine without aura and without status migrainosus, not intractable Take 1 tablet (100 mg) by mouth if needed in the morning, at noon, in the evening, and at bedtime for migraine. May repeat dose once in 2 hours if no relief. Do not exceed 2 doses in 24 hours. 12 tablet 5 02/23/20 25 025 Discontinued(Re order (will not trigger notification to Pharmacy)) SUMAtriptan (Imitrex) 100 MG tabletIndicatio ns:Migraine without aura and without status migrainosus, not intractable Take 1 tablet (100 mg) by mouth if needed in the morning, at noon, in the evening, and at bedtime for migraine. May repeat dose once in 2 hours if no relief. Do not exceed 2 doses in 24 hours. 12 tablet 5 02/23/20 25 025 Discontinued Active Problems Problem Noted Date Diagnosed Date Overweight 02/22/2025 Dental calculus 07/07/2023 Tinea corporis 12/17/2022 Assessment [...] Overdue, will schedule one with me or [facility]. Mammogram: Not due yet. Due to Fam [...] 12/15/2022 Mild persistent asthma 05/03/2017 Anxiety 06/05/2013 Resolved Problems Problem Noted Date Diagnosed Date Resolved Date Subjective visual disturbance of both eyes 02/07/2024 02/22/2025 Encounters Date Type Department Care Team Description 02/27/2025 2:45 PM EDT Procedure Visit [address] [phone] Kate Casarez CNM Urinary symptom or sign (Primary Dx); Vaginal discharge; Checking of intrauterine device; Dysmenorrhea 02/27/2025 Travel 02/26/[address] [address] Kate Casarez CNM chart prep 02/22/2025 9:00 AM EDT Office Visit [address] [address] Rosalind Mitchell MD Migraine without aura, not refractory (Primary Dx); Mild persistent asthma without complication; Overweight; Dietary counseling; Exercise counseling; Migraine without aura and without status migrainosus, not intractable; Sprain of interphalangeal joint of left little finger, initial encounter; Encounter for immunization 02/22/[address] [phone] Rosalind Mitchell MD Migraine without aura and without status migrainosus, not intractable 02/22/2025 Travel 02/21/2025 Telephone [facility] MEDICINE [address] [place] [address] Rosalind Mitchell MD chart prep 02/15/2025 Travel 02/13/2025 Patient Outreach [facility] [address] [place] [phone] Rosalind Mitchell MD Pre-visit Planning ((Unable to reach for PVP screening, LVM) to be completed in office ) 02/06/2025 Refill [facility] [address] [place] [address] Livier Aguillon, ARMORED TRUCK DRIVER Migraine without aura and without status migrainosus, not intractable 12/30/2024 Refill [facility] [place] [address] Livier Aguillon, ARMORED TRUCK DRIVER Migraine without aura and without status migrainosus, not intractable 12/11/2024 3:30 PM EDT Office Visit [facility] [address] Livier Aguillon, ARMORED TRUCK DRIVER Migraine without aura and without status migrainosus, not intractable (Primary Dx) 12/11/2024 Travel 12/11/2024 Telephone [facility] [address] [place] [address] Rosalind Mitchell MD Nurse Triage from Last 3 Months Immunizations Immunization Administration Dates Next Due DTaP 03/09/2005, 1,2000,05/26 [...] PCV 13 07/21/2001, 001,2000 Pneumococcal Conjugate PCV 20 02/22/2025 Pneumococcal Conjugate PCV 7 07/21/2001,12/31/19,2000 TD (adult), 2 Lf tetanus tox oid, [...] housing situation today? I have keshawn duong 02/22/[address] you li [...] 20 02/27/2025 2:57 PM EDT Oxygen Saturation 99% 07/20/2024 2:07 PM EST Inhaled Oxygen Concentration - - Weight 62.8 kg (138 lb 8 oz) 02/27/2025 2:57 PM EDT Height 166.4 cm (5' 5.5 ) 02/27/2025 2:57 PM EDT Body Mass Index 22.7 02/27/2025 2:57 PM EDT Plan of Treatment Health Maintenance Due Date Last Done Comments Hepatitis C Screening 2018 Dental Oral Exam 01/06/2024 07/07/2023 Dental Prophylaxis 01/06/2024 07/07/2023 Dental X-Ray: Bitewings 07/08/2024 07/07/2023 COVID-19 Vaccine ( season) 2025 07/11/2021, 12/03/2020, 11/12/2020 Influenza Vaccine (#1) 2025 , 04/10/2019, 03/31/2018, Additional history exists Pap Smear 08/11/2025 02/28/2024, 04/22, 04/16/2021 Alcohol/Substance Use Screening 02/22/2026 02/22/2025 Depression Screening 02/22/2026 02/22/2025, 02/23/20 Tobacco Screening 02/22/2026 02/22/2025 Disability Screening 02/27/2026 02/27/2025 Family Planning (PISQ) 02/27/2026 02/27/2025 SDOH Screening 02/27/2026 02/27/2025 Dental X-Ray: Full Mouth 07/08/2026 07/07/2023 DTaP/Tdap/Td [...] topic Hepatitis A Vaccines Completed 05/11/2016, 07/05/19 HIV Screening Completed 05/29/2022, 04/21/2021 Colposcopy Discontinued 08/11/2024, 08/10/2023 Pneumococcal Vaccine: Pediatrics (0 to 5 Years) and At-Risk Patients (6 to 49) Years Completed 02/22/2025, 07/21/2001, 07/21/2001, Additional history exists Meningococcal B Vaccine Aged Out No l onger eligible based on patient's age to complete this topic RSV under 20 months Aged Out No longe r eligible based on patient's age to complete this topic Rotavirus Vaccines Aged Out No longer eligible based on patient's age to complete this topic Procedures Procedure Name Priority Date/Time Associated Diagnosis Comments POCT URINALYSIS DIPSTICK Routine 02/27/2025 3:29 PM EDT Urinary symptom or sign POCT GLUCOSE Routine 02/22/2025 9:45 AM EDT Migraine without aura, not refractory POCT HEMOGLOBIN Routine 02/22/2025 9:44 AM EDT Migraine without aura, not refractory COLPOSCOPY Routine 08/11/2024 9:46 AM EST THINPREP IMAGING SYSTEM PAP Routine 02/28/2024 9:40 [...] Relevant to Health Maintenance Results * (ABNORMAL) POCT urinalysis dipstick manually [...] CARE TEST ENTER/ EDIT ORDERABLES Final Result * POCT Glucose (02/22/2025 9:45 AM EDT) [...] Media Lot # [id number] Lot# Expiration Date Blood 02/22/2025 9:44 AM EDT Rosalind Mitchell MD POINT OF CARE TEST ENTER /EDIT ORDERABLES Final Result * Colposcopy (08/11/2024 9:46 AM EST) Historical Provider MD IN CLINIC/BEDSIDE ORDERAB LES Final Result * (ABNORMAL) Pap Smear (02/28/2024 9:40 AM EDT) SOURCE: SEE NOTE [facility] Comment:Cervix Report Status: TNP [facility] Clinical Information: SEE NOTE [facility] Comment:None given LMP: SEE NOTE [facility] Comment:NONE GIVEN Prev. PAP: SEE NOTE [facility] Comment:NONE GIVEN Prev. BX: SEE NOTE [facility] Comment:NONE GIVEN Statement Of Adequacy: SEE NOTE [facility] Comment:Satisfactory for tammie luation.Endocervical/transformation zone componentpresent. General Categorization: SEE NOTE(A) [facility] Comment:Cytology Results: Ep ithelial Cell Abnormality Interpretation/Result: SEE NOTE(A) [facility] Comment:Atypical Squamous Ce lls of UndeterminedSignificance (ASC-US) Cytology Comment SEE NOTE [facility] Comment:This Pap test has be en evaluated with computerassisted technology. High School Home Economics Teacher: SEE NOTE [facility] Comment:SL, CT(ASCP)CT scree deborah location: [address] [address] Review [employer] Home Economics Teacher: SEE NOTE [facility] Comment:MSM, CT(ASCP)CT scre ening location: [address] [address] Pathologist SEE NOTE [facility] Comment:Maria Luisa Friend. ,Board Certified in Anatomic and ClinicalPathology, Cytopathology and Immunopathology(electronic signature) PAP Infection SEE NOTE [facility] Comment:Shift in vaginal li ra suggestive of bacterialvaginosis. See Note SEE NOTE [facility] Comment:EXPLANATORY NOTE:The Pap is a screening test for cervical cancer. It isnot a diagnostic test and is subject to false negativeand false positive results. It is most reliable when asatisfactory sample, regularly obtained, is submittedwith relevant clinical findings and history, and whenthe Pap result is evaluated along with historic andcurrent clinical information.THIS TEST WAS PERFORMED AT:[facility] [facility] [place] [phone] MARTINEZ MD Pap Vial Vaginal structure / Unknown 02/28/2024 9:40 AM EDT 02/28/2024 6:47 PM EDT Narrative [facility] - 03/03/2024 3:12 PM EDT SEE SCANNED RESULTS IN EMR us Kate Casarez CNM LAB PATHOLOGY ORDERABLES Final Result [facility] [address] [place] [address] [phone] * HIV-1/2 Antigen and Antibodies, Fourth Generation, with Reflexes (05/29/2022 12:32 PM EST) HIV Antigen/Antibody, 4th Generation NON-REAC TIVE NON-REAC TIVE [facility] Comment: HIV-1 antigen and HIV-1/HIV-2 antibodies were not detected. There is no laboratory evidence of HIV infection. PLEASE NOTE: This information has been disclosed to you from records whose confidentiality may be protected by state law. If your state requires such protection, then the state law prohibits you from making any further disclosure of the information without the specific written consent of the person to whom it pertains, or as otherwise permitted by law. A general authorization for the release of medical or other information is NOT sufficient for this purpose. For additional information please refer to http://education.[employer]/faq/KVF189 (This link is being provided for informational/ educational purposes only.) The performance of this assay has not been clinically validated in patients less than 2 years old. 05/29/2022 12:3 2 PM EST 05/29/2022 12:33 PM EST Kate Casarez [facility] BLOOD ORDERABLES Nuris king Result [facility] [address], [facility] [place] [address] [facility] [address], [place] [address] from Last 3 Months or Most Recently Relevant to Health Maintenance Insurance [facility] , [address] [place] [address] [place] AD[place] DENTAL - [place] Care Teams Granite Installer Relationship Specialty Start Date End Date Rosalind Mitchell MD [address] [place] [phone] PCP - General Family Medicine 12/07/18
--- OUTSIDE RECORDS SUMMARY | 2025-02-27 18:38 | XMS_ITS | Encounter Summary ---
Author Organization [employer] Address [address] [facility] [address] [place] [address] Care Team Providers Care Bucket Operator Name Role Phone Rosalind Mitchell MD Primary Care Provider + Encounter Details Date Type Department Care Team (Latest Contact Info) Description 02/27/2025 Travel Social History Tobacco Use Types Packs/Day [...] Q2 Not on file 02/27/2025 Comments No Sex and Gender Information Value Date Recorded Sex Assigned at Female 04/20/2022 10:17 AM EDT Legal Sex Female 10:17 AM EDT Gender Identity Female 04/20/2022 10:17 AM EDT Sexual Orientation Straight 04/20/2022 10 :17 AM EDT documented as of this encounter Functional Status * Over the [...] Hart MA documented as of this encounter Plan of Treatment Not on file documented as of this encounter Visit Diagnoses Not on filedocumented in this encounter Additional Health Concerns Assessment Noted Time PHQ-9 Depression Total Score: 3 02/23/20 25 9:47 AM EDT documented as of this encounter Care Teams Bucket Operator Relationship Specialty Start Date End Date Rosalind Mitchell MD [address] [place] [phone] PCP - General Family Medicine 12/07/18 documented as of this encounter
--- OUTSIDE RECORDS SUMMARY | 2025-02-27 18:38 | XMS_ITS | Encounter Summary ---
Author Organization [employer] Address [address] [facility] 7t [place] [address] Care Team Providers Care Law Office Manager Name Role Phone Rosalind Mitchell MD Primary Care Provider + Reason for Visit * Reason Comments Med Change Request Encounter Details Date Type Department Care Team ([facility] Contact Info) Description 02/22/2025 Refill [facility] [address] [place], [place] [phone] Rosalind Mitchell MD [address] [place], [place] [phone] Migraine without aura and without status migrainosus, not intractable Social History Tobacco Use Types Packs/Day Years [...] AM EDT Jannet Mcmahon MA * Trouble concentrating on things, such as reading the newspaper or watching television Answer Date of Assessment Author Not at all 02/22/2025 9:47 AM EDT Jannet Mcmahon MA * Moving or speaking so slowly that other people could have noticed? Or the opposite - being so fidgety or restless that you have been moving around a lot more than usual. Answer Date of Assessment Author Not at all 02/22/2025 9:47 AM EDT Jannet Mcmahon MA * Thoughts that you would be better off or hurting yourself in some way Answer Date of Assessment Author Not at all 02/22/2025 9:47 AM EDT Jannet Mcmahon MA * Patient Health Questionnaire-9 Score Answer Date of Assessment Author 3 02/22/2025 9:47 AM EDT Jannet Mcmahon MA * How difficult have these problems made it for you to do your work, take care of things at home, or get along with other people? Answer Date of Assessment Author Somewhat difficult 02/22/2025 9:47 AM EDT Jannet Avila MA documented as of this encounter Plan of Treatment Not on file documented as of this encounter Visit Diagnoses Diagnosis Migraine without aura and without status migrainosus, not intractable documented in this encounter Additional Health Concerns Assessment Noted Time PHQ-9 Depression Total Score: 3 02/23/20 25 9:47 AM EDT documented as of this encounter Care Teams Law Office Manager Relationship Specialty Start Date End Date Rosalind Mitchell MD [address] [place] [phone] PCP - General Family Medicine 12/07/18 documented as of this encounter
--- OUTSIDE RECORDS SUMMARY | 2025-02-27 18:38 | XMS_ITS | Encounter Summary ---
Author Organization [employer] Address [address] [facility] [address] 7[address] [place] [address] Care Team Providers Care Bobbin Sorter Name Role Phone Rosalind Mitchell MD Primary Care Provider + Encounter Details Date Type Department Care Team (Latest Contact Info) Description 02/22/2025 Travel Social History Tobacco Use Types Packs/Day [...] documented as of this encounter Care Teams Bobbin Sorter Relationship Specialty Start Date End Date Rosalind Mitchell MD [address] [place] [phone] PCP - General Family Medicine 12/07/18 documented as of this encounter
--- OUTSIDE RECORDS SUMMARY | 2025-02-27 18:38 | XMS_ITS | Encounter Summary ---
Author Organization [employer] Address [address] [facility] 7t [place] [address] Care Team Providers Care Planer Feeder Name Role Phone Rosalind Mitchell MD Primary Care Provider + Reason for Visit * Reason Onset Date Comments chart prep 02/26/2025 Encounter Details Date Type Department Care Team ([facility] st Contact Info) Description 02/26/2025 Telephone [facility] [address] [place], [place] [phone] Kate Casarez, [facility] [address] [place], [place] [phone] chart prep Social History Tobacco Use Types Packs/Day Years [...] your housing situation today? I have keshawn sing 02/22/[address] you li [...] AM EDT documented as of this encounter Miscellaneous Notes * Telephone Encounter - Nafisa Cantu MA - 02/26/2025 1:58 PM EDT Chart Prep Labs: not applicable Images: not applicable Referrals: not applicable Vaccines due: Covid and Flu Screenings: pap smear Overdue care gaps: SDOH and GRISEL-7 documented in this encounter Plan of Treatment Not on file documented as of this encounter Visit Diagnoses Not on filedocumented in this encounter Additional Health Concerns Assessment Noted Time PHQ-9 Depression Total Score: 3 02/23/20 25 9:47 AM EDT documented as of this encounter Care Teams Planer Feeder Relationship Specialty Start Date End Date Rosalind Mitchell MD [address] [place] [address] PCP - General Family Medicine 12/07/18 documented as of this encounter
--- OUTSIDE RECORDS SUMMARY | 2025-02-27 18:38 | XMS_ITS | Clinical Summary ---
Author Organization [facility] Address [address] [place] [phone] Phone Care Team Providers Care Supervisor Sign Shop Name Role Phone Rosalind Mitchell MD Primary Care Provider + Allergies Active Allergy Reactions Criticality Noted Date Comments Sulfa (Sulfonamide Antibiotics) 10/20 Medications No known medications Active Problems No known active problems Social History Tobacco Use Types Packs/Day Years Used Date Smoking Tobacco: Never Assessed Alcohol Use Standard Drinks/Week Comments Yes 0 (1 standard drink = 0.6 oz pur e alcohol) Education Answer Date Recorded Are you interested in more education? Not on promise e 10/17/2022 Are you concerned about learning? Not on file 10/17/2022 No 10/17/2022 No 10/17/2022 Digital Access Answer Date Recorded No 11/17/2022 No 11/17/2022 Reliable internet access at home? Not on file 11/17/2022 Device with a working camera? Not on file Comments Unknown Sex and Gender Information Value Date Recorded Sex Assigned at Female 11/13/2021 11:27 PM EDT Legal Sex Female 11:11 PM EDT Gender Identity Female 11/13/2021 11:27 PM EDT Sexual Orientation Straight 11/13/2021 11 :27 PM EDT Last Filed Vital Signs Vital Sign Reading Time Taken Comments Blood Pressure 110/70 11/13/2021 11:21 PM EDT Pulse 90 11/13/2021 11:21 PM EDT Temperature 36.5 C (97.7 F) 11/13/2021 11:21 PM EDT Respiratory Rate 18 11/13/2021 11:21 PM EDT Oxygen Saturation 98% 11/13/2021 11:21 PM EDT Inhaled Oxygen Concentration - - Weight 54.4 kg (120 lb) 11/13/2021 11:21 PM EDT Height 160 cm (5' 3 ) 11/13/2021 11:21 PM EDT Body Mass Index 21.26 11/13/2021 11:21 PM EDT Plan of Treatment Not on file Medical Devices Not on file Insurance C3 ACO C3 ACO C3 ACO C3 ACO C3 ACO C3 ACO C3 ACO C3 ACO C3 ACO Care Teams Supervisor Sign Shop Relationship Specialty Start Date End Date Rosalind Mitchell MD [address] [place] [phone] PCP - General Internal Medicine 11/13/21 Additional Source Comments The information contained in this document represents components of the legal health record. It is not the complete legal health record.[facility]
[2025-02-28 03:28] LABS: Bacterial Vaginosis PCR POSITIVE (Negative); Candida Group PCR NOT DETECTED (Not Detect); Candida glab krusei PCR NOT DETECTED (Not Detect); Trichomonas vaginalis PCR NOT DETECTED (Not Detect)
== END 2025-02-27 18:36 | disposition home or self-care (01) ==
LOC: HO.HHCLNP 18:35
PROVIDERS: Visit Provider Advanced Practice Midwife
DX: R39.9 Unspecified symptoms and signs involving the genitourinary system (principal); N89.8 Other specified noninflammatory disorders of vagina
CPT/HCPCS: 81515; 87086

== ENCOUNTER 2025-04-25 14:20 | Outpatient (REF) | payer OTHER, SELFPAY ==
--- NOTE | ~2025-04-25 | US_ITS ---
EXAMINATION: US PELVIS CLINICAL INFORMATION: IUD check COMPARISON: 04/16/2018 TECHNIQUE: Ultrasound of the pelvis is performed using both transabdominal and transvaginal transducers along with Doppler. Transvaginal imaging is performed due to inadequate visualization transabdominally. FINDINGS: Uterus: The uterus is anteverted and measures 4.2 x 2.3 x 2.8 cm. The double wall endometrial thickness is 7 mm. IUD is visible in the upper uterine cavity. The uterus is smooth in contour and has normal myometrial echogenicity. No visible fibroid. Adnexa: Both ovaries are visualized. There is normal color flow to the adnexa. There is no ovarian torsion. There is no pelvic ascites or fluid collection. Right ovary measures 2.8 x 1.5 x 1.0 cm. 13 mm dominant follicle is present. Left ovary measures 2.4 x 1.0 x 1.4 cm. US/US pelvic and transvaginal IMPRESSION: Optimally positioned IUD Electronically signed by: Edson Garcia MD 04/25/2025 02:59 PM EST
--- OUTSIDE RECORDS SUMMARY | 2025-04-25 17:31 | XMS_ITS | Clinical Summary ---
Author Organization [employer] Address [address] [facility] 7t [place] [address] Care Team Providers Care Spray Drier Operator Helper Name Role Phone Rosalind Mitchell MD Primary [...] 02/23/20 25 Active ibuprofen (IBU) 800 MG tabletIndicatio ns:Moderate left ankle sprain, initial encounter 1 tablet every 8 hours with food during menses, up to 7 days. 42 tablet 04/03/20 25 Active ibuprofen (IBU) 800 MG tablet 1 tablet every 8 hours with food during menses, up to 7 days. 42 tablet 02/28/20 25 025 Discontinued(Re order (will not trigger notification to Pharmacy)) Active Problems Problem Noted Date Diagnosed Date Abdominal wall hernia 2025 Assessment & Plan (2025 3:51 PM EDT): I discussed with patient regarding lowering weights lifted at the gym, to avoid exercises that trigger pain. Patient tells me that she hopes for another in 1 to 2 years, we will revisit sxs then. Overweight 02/22/2025 Dental calculus 07/07/2023 Tinea corporis [...] Overdue, will schedule one with me or passenger service agent. Mammogram: Not due yet. Due to Fam [...] tapping. Continue benjamin tape x 3w at [facility], we'll call With Xrays results. Poor short-term [...] bruising 12/15/2022 Knee pain 12/15/2022 Dysmenorrhea 12/15/2022 Assessment & Plan (2025 3:52 PM EDT): Take ibuprofen as needed, follow-up pelvic ultrasound to see location of IUD. Follow-up with passenger service agent as needed Mild persistent asthma 05/03/2017 Anxiety 06/05/2013 Resolved Problems Problem Noted Date Diagnosed Date Resolved Date Subjective visual disturbance of both eyes 02/07/2024 02/22/2025 Encounters Date Type Department Care Team Description 04/03/2025 2:30 PM EDT Office Visit [address] [address] Catrina Ocampo, ELECTRIC APPLIANCE INSTALLER Moderate left ankle sprain, initial encounter (Primary Dx) 04/03/2025 Travel 04/03/[address] [address] Rosalind Mitchell MD Nurse Triage 2025 12:15 PM EDT Office Visit [address] [address] Rosalind Mitchell MD Abdominal wall hernia (Primary Dx); Dysmenorrhea 03/21/2025 Travel 02/28/2025 Results Follow-Up [address] [address] Amy Borja CNM Bacterial Vaginosis Panel, POCT urinalysis dipstick manually resulted, Culture, Urine, Routine, US Pelvis Transvaginal 02/27/2025 2:45 PM EDT Procedure Visit [address] [address] Amy Borja CNM Urinary symptom or sign (Primary Dx); Vaginal discharge; Checking of intrauterine device; Dysmenorrhea 02/27/2025 Travel 02/26/[address] [phone] Amy Borja CNM chart prep 02/22/2025 9:00 AM EDT Office Visit [address] [address] Rosalind Mitchell MD Migraine without aura, not refractory (Primary Dx); Mild persistent asthma without complication; Overweight; Dietary counseling; Exercise counseling; Migraine without aura and without status migrainosus, not intractable; Sprain of interphalangeal joint of left little finger, initial encounter; Encounter for immunization 02/22/[address] [address] Rosalind Mitchell MD Migraine without aura and without status migrainosus, not intractable 02/22/2025 Travel 02/21/[address] [address] Rosalind Mitchell MD chart prep 02/15/2025 Travel 02/13/2025 Patient Outreach [facility] [address] [place] [address] Rosalind Mitchell MD Pre-visit Planning ((Unable to reach for PVP screening, LVM) to be completed in office ) 02/06/2025 Refill [facility] [address] [place] [address] Henna, Livier, ELECTRIC APPLIANCE INSTALLER Migraine without aura and without status migrainosus, not intractable from Last 3 Months Immunizations Immunization Administration [...] Sign Reading Time Taken Comments Blood Pressure 106/64 04/03/2025 1:33 PM EDT Pulse 77 04/03/2025 1:33 PM EDT Temperature 36.9 C (98.4 F) 04/03/2025 1:33 PM EDT Respiratory Rate 16 04/03/2025 1:33 PM EDT Oxygen Saturation 99% 04/03/2025 1:33 PM EDT Inhaled Oxygen Concentration - - Weight 62.4 kg (137 lb 8 oz) 04/03/2025 1:33 PM EDT Height 152.4 cm (5') 04/03/2025 1:33 PM EDT Body Mass Index 26.85 04/03/2025 1:33 PM EDT Plan of Treatment Health Maintenance Due Date Last Done Comments Hepatitis C Screening 2018 Dental Oral Exam 01/06/2024 07/07/2023 Dental Prophylaxis 01/06/2024 07/07/2023 Dental X-Ray: Bitewings 07/08/2024 07/07/2023 COVID-19 Vaccine ( season) 2025 07/11/2021, 12/03/2020, 11/12/2020 Influenza Vaccine (#1) 2025 , 04/10/2019, 03/31/2018, Additional history exists Pap Smear 08/11/2025 02/28/2024, 11/2 02/2022, 04/16/2021 Alcohol/Substance Use Screening 02/22/2026 02/22/2025 Depression Screening 02/22/2026 02/22/2025, 02/23/20 Disability Screening 02/27/2026 02/27/2025 Family Planning (PISQ) 02/27/2026 02/27/2025 SDOH Screening 02/27/2026 02/27/2025 Tobacco Screening 04/03/2026 04/03/2025 Dental X-Ray: Full Mouth 07/08/2026 07/07/2023 DTaP/Tdap/Td [...] 16 HIV Screening Completed 05/29/2022, 04/21/2021 Colposcopy Discontinued [...] Procedure Name Priority Date/Time Associated Diagnosis Comments US PELVIS TRANSVAGINAL Urgent 04/25/2025 2:30 PM EST Checking of intrauterine device Dysmenorrhea BACTERIAL VAGINOSIS PANEL Routine 02/27/2025 3:34 PM EDT Vaginal discharge POCT URINALYSIS DIPSTICK Routine 02/27/2025 3:29 PM EDT Urinary symptom or sign CULTURE, URINE, ROUTINE Routine 02/27/2025 3:28 PM EDT Urinary symptom or sign POCT [...] Recently Relevant to Health Maintenance Results * US Pelvis Transvaginal (04/25/2025 2:30 PM EST) Anatomical Region Laterality Modality Pelvis Ultrasound 04/25/2025 2:30 PM EST Narrative 04/25/2025 3:02 PM EST [facility] Adult Primary Care [facility] [place] [address] Ultrasound Report Signed Patient: Leonie Roman MR#: [id number] : 2000 Acct:[id number] Age/Sex: 25 / F ADM Date: 04/25/25 Loc: HO.HMGCX Attending Dr: Amy Borja CNM Ordering Physician: AMY BORJA CNM Date of Service: 04/25/25 Procedure(s): US pelvic and transvaginal Accession Number(s): [id number] cc: Rosalind Mitchell MD; AMY BORJA CNM Reason for Exam: IUD check, increased cramping EXAMINATION: US PELVIS CLINICAL INFORMATION: IUD check COMPARISON: 04/16/2018 TECHNIQUE: Ultrasound of the pelvis is performed using both transabdominal and transvaginal transducers along with Doppler. Transvaginal imaging is performed due to inadequate visualization transabdominally. FINDINGS: Uterus: The uterus is anteverted and measures 4.2 x 2.3 x 2.8 cm. The double wall endometrial thickness is 7 mm. IUD is visible in the upper uterine cavity. The uterus is smooth in contour and has normal myometrial echogenicity. No visible fibroid. Adnexa: Both ovaries are visualized. There is normal color flow to the adnexa. There is no ovarian torsion. There is no pelvic ascites or fluid collection. Right ovary measures 2.8 x 1.5 x 1.0 cm. 13 mm dominant follicle is present. Left ovary measures 2.4 x 1.0 x 1.4 cm. US/US pelvic and transvaginal IMPRESSION: Optimally positioned IUD Electronically signed by: Edson Garcia MD 04/25/2025 02:59 PM EST Dictated By: Edson Garcia MD Signed By: <Electronically signed by Edson Garcia MD in OV> 04/25/25 1459 DD/ 1430 TD/TT: 04/25/25 1454 Program Review Director: Procedure Note Donotuseinterpreter, Image - 04/25/2025 [facility] Adult Primary Care [facility] [place] [address] Ultrasound Report Signed Patient: Leonie Roman#: [id number] : 2000Acct:[id number] Age/Sex: 25 / FADM Date: 04/25/25 Loc: HO.HMGCX Attending Dr: Amy Borja CNM Ordering Physician: AMY BORJA CNM Date of Service: 04/25/25 Procedure(s): US pelvic and transvaginal Accession Number(s): [id number] cc: Rosalind Mitchell MD; AMY BORJA CNM Reason for Exam: IUD check, increased cramping EXAMINATION: US PELVIS CLINICAL INFORMATION: IUD check COMPARISON: 04/16/2018 TECHNIQUE: Ultrasound of the pelvis is performed using both transabdominal and transvaginal transducers along with Doppler. Transvaginal imaging is performed due to inadequate visualization transabdominally. FINDINGS: Uterus: The uterus is anteverted and measures 4.2 x 2.3 x 2.8 cm. The double wall endometrial thickness is 7 mm. IUD is visible in the upper uterine cavity. The uterus is smooth in contour and has normal myometrial echogenicity. No visible fibroid. Adnexa: Both ovaries are visualized. There is normal color flow to the adnexa. There is no ovarian torsion. There is no pelvic ascites or fluid collection. Right ovary measures 2.8 x 1.5 x 1.0 cm. 13 mm dominant follicle is present. Left ovary measures 2.4 x 1.0 x 1.4 cm. US/US pelvic and transvaginal IMPRESSION: Optimally positioned IUD Electronically signed by: Edson Garcia MD 04/25/2025 02:59 PM EST RP Dictated By: Edson Garcia MD Signed By: <Electronically signed by Edson Garcia MD in OV> 04/25/25 1459 DD/ 1430 TD/TT: 04/25/25 1454 Program Review Director: us Amy Borja CNM IMG US PROCEDURES Final R esult * (ABNORMAL) Bacterial Vaginosis Panel (02/27/2025 3:34 PM EDT) TRICHOMONAS VAGINALIS DETECTION BY PCR NOT DETECTED Not Detect [facility] BACTERIAL VAGINOSIS DETECTION BY PCR POSITIVE(A) Negative [facility] Comment:The BV organism targ ets of the Xpert Xpress MVP test can becommensal in women; Xpert Xpress MVP positive results forbacterial vaginosis should be considered in conjunction withother clinical and patient information to determine thedisease status. Organisms that are not detected by the XpertXpress MVP test have also been reported to be associatedwith BV and aerobic vaginitis.The Xpert Xpress MVP test performance has not been evaluatedin patients under the age of 14. ALESSANDRA GROUP DETECTION BY PCR NOT DETECTED Not Detect [facility] Alessandra glab krusei PCR NOT DETECTED Not Detect [facility] Swab Vaginal structure / Unknown 02/27/2025 3:34 PM EDT 02/27/2025 6:48 PM EDT Amy MORA LAB MICROBIOLOGY - GENERA L ORDERABLES Final Result Performing Organization Address [facility]/ZIP Co de Phone Number [facility] [address] [place] [phone] * (ABNORMAL) POCT urinalysis dipstick manually resulted [...] Date 33,126 Urine 02/27/2025 3:29 PM EDT Amy MORA POINT OF CARE TEST ENTER/ EDIT ORDERABLES Final Result * Culture, Urine, Routine (02/27/2025 3:28 PM EDT) Urine Urine specimen obtained by clean catch procedure / Unknown 02/27/2025 3:28 PM EDT 02/27/2025 6:36 PM EDT Comment:UACC Narrative [facility] - 03/01/2025 9:07 AM EDT Urine Culture No growth. Specimen Source: Urine clean catch Amy MORA LAB MICROBIOLOGY - GENERA L ORDERABLES Final Result Performing Organization Address [facility]/ZIP Co de Phone Number [facility] [address] [place] [phone] * POCT Glucose (02/22/2025 9:45 AM EDT) Glucose Blood, POC 116 60 - 200 mg/dL QC Media Lot # [id number] Lot# Expiration Date ,025 Blood Capillary blood specimen / Unknown 02/22/2025 9:45 AM EDT us Rosalind Mitchell MD POINT OF CARE TEST ENTER /EDIT ORDERABLES Final Result * POCT Hemoglobin (02/22/2025 9:44 AM EDT) Pathologist [facility] Hemoglobin 13.6 12.0 - 15.0 QC Media Lot # [id number] Lot# Expiration Date , Blood 02/22/2025 9:44 AM EDT Rosalind Mithcell MD POINT OF CARE TEST ENTER /EDIT ORDERABLES Final Result * Colposcopy (08/11/2024 9:46 AM EST) us Historical Provider MD IN CLINIC/BEDSIDE ORDERAB LES Final Result * (ABNORMAL) Pap Smear (02/28/2024 9:40 AM EDT) Pathologist [facility] SOURCE: SEE NOTE [facility] Comment:Cervix Report Status: TNP [facility] Clinical Information: SEE NOTE [facility] Comment:None given LMP: SEE NOTE [facility] Comment:NONE GIVEN Prev. PAP: SEE NOTE [facility] Comment:NONE GIVEN Prev. BX: SEE NOTE [facility] Comment:NONE GIVEN Statement Of Adequacy: SEE NOTE [facility] Comment:Satisfactory for tammie luation.Endocervical/transformation zone componentpresent. General Categorization: SEE NOTE(A) [facility] Comment:Cytology Results: Ep ithelial Cell Abnormality Interpretation/Result: SEE NOTE(A) [facility] Comment:Atypical Squamous Ce lls of UndeterminedSignificance (ASC-US) Cytology Comment SEE NOTE [facility] Comment:This Pap test has be en evaluated with computerassisted technology. Home And Family Living Professor: SEE NOTE [facility] Comment:SL, CT(ASCP)CT scree deborah location: [address] [address] Review Home And Family Living Professor: SEE NOTE [facility] Comment:MSM, CT(ASCP)CT scre ening location: [address] [address] Pathologist SEE NOTE [facility] Comment:Maria Luisa Friend. ,Board Certified in Anatomic and ClinicalPathology, Cytopathology and Immunopathology(electronic signature) PAP Infection SEE NOTE [facility] Comment:Shift in vaginal li ra suggestive of bacterialvaginosis. See Note SEE NOTE [facility] Comment:EXPLANATORY NOTE:The Pap is a screening test for cervical cancer. It isnot a diagnostic test and is subject to false negativeand false positive results. It is most reliable when asatisfactory sample, regularly obtained, is submittedwith relevant clinical findings and history, and whenthe Pap result is evaluated along with historic andcurrent clinical information.THIS TEST WAS PERFORMED AT:[employer] [address] [phone] MARTINEZ MD Pap Vial Vaginal structure / Unknown 02/28/2024 9:40 AM EDT 02/28/2024 6:47 PM EDT Narrative [facility] - 03/03/2024 3:12 PM EDT SEE SCANNED RESULTS IN EMR Amy Borja CNM LAB PATHOLOGY ORDERABLES Final Result [facility] [address] [place] [phone] * HIV-1/2 Antigen and Antibodies, Fourth Generation, with Reflexes (05/29/2022 12:32 PM EST) HIV Antigen/Antibody, 4th Generation NON-REAC TIVE NON-REAC TIVE [employer] [facility] Comment: HIV-1 antigen and HIV-1/HIV-2 antibodies [...] purpose. For additional information please refer to http://education.Code71/faq/ZWI465 (This link is being provided for informational/ educational purposes only.) The performance of this assay has not been clinically validated in patients less than 2 years old. 05/29/2022 12:3 2 PM EST 05/29/2022 12:33 PM EST Amy Borja [facility] BLOOD ORDERABLES Nuris king Result [facility] [address], [place] [address] [employer] [facility] [address], [place] [address] from Last 3 Months or Most Recently Relevant to Health Maintenance Insurance [facility] , [address] [place] [address] [place] AD[place] DENTAL - [facility] [address] Care Teams Spray Drier Operator Helper Relationship Specialty Start Date End Date Rosalind Mitchell MD [address] [place] [phone] PCP - General Family Medicine 12/07/18
--- OUTSIDE RECORDS SUMMARY | 2025-04-25 17:31 | XMS_ITS | Encounter Summary ---
Author Organization [employer] Address [address] [place] [address] Care Team Providers Care Fringe Weaver Name Role Phone Rosalind Mitchell MD Primary Care Provider + Encounter Details Date Type Department Care Team (Late st Contact Info) Description 08/15/2024 Orders Only [facility] [address] [place], [place] [phone] Provider, MD Bev Social History Tobacco Use [...] on filedocumented in this encounter Care Teams Fringe Weaver Relationship Specialty Start Date End Date Rosalind Mitchell MD [address] [place] [phone] PCP - General Family Medicine 12/07/18 documented as of this encounter
== END 2025-04-25 14:21 | disposition home or self-care (01) ==
LOC: HO.HMGCX 14:20
PROVIDERS: PCP Internal Medicine; Visit Provider Advanced Practice Midwife
DX: Z30.431 Encounter for routine checking of intrauterine contraceptive device (principal); N94.6 Dysmenorrhea, unspecified
CPT/HCPCS: 76830; 76856

== ENCOUNTER → 2025-04-25 14:23 | Outpatient (BNV) | payer OTHER, SELFPAY | PROVIDERS: PCP Internal Medicine; Visit Provider Radiology Diagnostic Radiology | DX: Z97.5 Presence of (intrauterine) contraceptive device (principal); R10.30 Lower abdominal pain, unspecified | CPT/HCPCS: 76830; 76856 ==